=== PATIENT | female | born 1955 | race Caucasian/White ===

== ENCOUNTER → 2016-07-15 | Outpatient (CLI) | payer BC ==
[2016-07-15 09:55] LABS: ALT 42 U/L (9-52); AST 28 U/L (14-36); Alkaline Phosphatase 111 U/L (38-126); Anion Gap 7 mmol/L; Blood Urea Nitrogen 12 mg/dL (7-17); Carbon Dioxide 33 mmol/L (22-30); Chloride 98 mmol/L (98-107); Cholesterol 260 mg/dL (<200); Glucose 88 mg/dL (74-99); HDL Cholesterol 68 mg/dL (40-60); Non-African American GFR(MDRD) >60 (>60 ml/min/1.73 sqM); Potassium 4.8 mmol/L (3.5-5.1); Sodium 138 mmol/L (137-145); Total Bilirubin 0.5 mg/dL (0.2-1.3); Total Protein 7.4 g/dL (6.3-8.2); Triglycerides 199 mg/dL (<150)
[2016-07-15 11:29] LABS: Hemoglobin A1C 6.3 % (4.2-6.1)
== END | disposition home or self-care (01) ==
LOC: LABWHC1 08:44
PROVIDERS: ATTEND Family Medicine
DX: I10 Essential (primary) hypertension (principal); G47.00 Insomnia, unspecified; J44.1 Chronic obstructive pulmonary disease with (acute) exacerbation; E78.00 Pure hypercholesterolemia, unspecified
CPT/HCPCS: 36415; 80053; 80061; 83036; 84443

== ENCOUNTER → 2016-11-11 | Outpatient (CLI) | payer BC ==
[2016-11-11 08:58] LABS: Hemoglobin A1C 5.6 % (4.2-6.1)
[2016-11-11 12:28] LABS: ALT 46 U/L (9-52); AST 26 U/L (14-36); Alkaline Phosphatase 97 U/L (38-126); Anion Gap 11 mmol/L; Blood Urea Nitrogen 12 mg/dL (7-17); Calcium 9.4 mg/dL (8.4-10.2); Carbon Dioxide 27 mmol/L (22-30); Chloride 104 mmol/L (98-107); Cholesterol 213 mg/dL (<200); Glucose 103 mg/dL (74-99); HDL Cholesterol 69 mg/dL (40-60); Non-African American GFR(MDRD) >60 (>60 ml/min/1.73 sqM); Potassium 4.8 mmol/L (3.5-5.1); Sodium 142 mmol/L (137-145); Total Bilirubin 0.4 mg/dL (0.2-1.3); Total Protein 6.9 g/dL (6.3-8.2)
== END | disposition home or self-care (01) ==
LOC: LABWHC1 08:25
PROVIDERS: ATTEND Family Medicine
DX: E78.00 Pure hypercholesterolemia, unspecified (principal); J44.1 Chronic obstructive pulmonary disease with (acute) exacerbation; I10 Essential (primary) hypertension; G47.00 Insomnia, unspecified; R73.01 Impaired fasting glucose; R06.2 Wheezing
CPT/HCPCS: 36415; 80053; 80061; 83036; 84443

== ENCOUNTER → 2017-09-15 | Outpatient (CLI) | payer BC ==
[2017-09-15 09:27] LABS: ALT 50 U/L (9-52); AST 25 U/L (14-36); Albumin 4.1 g/dL (3.5-5.0); Alkaline Phosphatase 80 U/L (38-126); Anion Gap 11 mmol/L; Blood Urea Nitrogen 15 mg/dL (7-17); Carbon Dioxide 28 mmol/L (22-30); Chloride 102 mmol/L (98-107); Cholesterol 232 mg/dL (<200); Glucose 90 mg/dL (74-99); HDL Cholesterol 91 mg/dL (40-60); LDL Cholesterol,Calculated 108 mg/dL (0-99); Potassium 4.9 mmol/L (3.5-5.1); Sodium 141 mmol/L (137-145); Total Bilirubin 0.5 mg/dL (0.2-1.3); Triglycerides 164 mg/dL (<150)
== END | disposition home or self-care (01) ==
LOC: LABWHC1 08:21
PROVIDERS: ATTEND Family Medicine
DX: J44.9 Chronic obstructive pulmonary disease, unspecified (principal); R60.9 Edema, unspecified; I10 Essential (primary) hypertension; E78.00 Pure hypercholesterolemia, unspecified; R73.01 Impaired fasting glucose
CPT/HCPCS: 36415; 80053; 80061; 83036; 84443

== ENCOUNTER 2018-01-31 14:14 | Inpatient (IN) | payer BC ==
--- NOTE | 2018-01-31 14:23 | US ---
EXAMINATION TYPE: US venous doppler duplex LE LT DATE OF EXAM: 01/31/2018 1:54 PM COMPARISON: NONE CLINICAL HISTORY: pain, swelling in left leg R22.42,L53.9. Left leg pain and swelling x 4 days SIDE PERFORMED: Left TECHNIQUE: The lower extremity deep venous system is examined utilizing real time linear array sonog astrid with graded compression, doppler sonography and color-flow sonography. VESSELS IMAGED: External Iliac Vein (EIV) Common Femoral Vein Deep Femoral Vein Greater Saphenous Vein * Femoral Vein Popliteal Vein Small Saphenous Vein * Proximal Calf Veins (* superficial vessels) Grayscale, color doppler, spectral doppler imaging performed of the deep veins of the left lower extr emity. There is normal flow, compressibility, vascular waveforms. Left Leg: Appears positive for DVT from EIV through proximal calf veins IMPRESSION: Positive deep venous thrombosis of the left lower extremity from the external iliac vein through the entirety of the left lower extremity extending into the proximal calf veins. Results [place] led to Emma Concepcion RISK INTERN at end of exam by the electromechanical technician.
--- NOTE | 2018-01-31 14:57 | ED ---
Lower Extremity Injury HPI - General Source: patient, RN notes reviewed Mode of arrival: wheelchair Limitations: no limitations <Dara Schofield - Last Filed: 01/31/18 14:50> <Kobe Serra - Last Filed: 01/31/18 14:59> - General Chief Complaint: Extremity Injury, Lower Stated Complaint: Blood Clot Time Seen by Provider: 01/31/18 14:38 - History of Present Illness Initial Comments: This is a 62-year-old female who presents to the emergency department with chief complaint of left lower extremity blood clot. Patient states that on Sunday she developed a pain in her left thigh. She states that she thought it was a charley horse but then the pain never went away. She states that the pain worsened and her leg became very swollen. She states that she is having difficulty walking on the leg due to the pain. She came in for an outpatient ultrasound of the left lower extremity as ordered by her PCP, Dr. Love. This did reveal evidence for an acute DVT extending from the external iliac vein to the proximal calf veins of the left lower extremity. Patient denies any history of blood clots. She denies anticoagulant use. Patient does state that she has a history of COPD and does have a chronic cough. Denies any worsening shortness of breath. Denies chest pain. Denies recent fevers or chills, abdominal pain, nausea or vomiting. (Dara Schofield) - Related Data Allergies Allergy/AdvReac Type Severity Reaction Status Date / Time No Known Allergies Allergy Verified 01/31/18 14:41 Review of Systems ROS Other: All systems not noted in ROS Statement are negative. <Dara Schofield - Last Filed: 01/31/18 14:50> ROS Other: All systems not noted in ROS Statement are negative. <Kobe Serra - Last Filed: 01/31/18 14:59> ROS Statement: Those systems with pertinent positive or pertinent negative responses have been documented in the HPI. Past Medical History Past Medical History: COPD, Deep Vein Thrombosis (DVT), Hyperlipidemia, Hypertension Additional Past Medical History / Comment(s): L3 fx History of Any Multi-Drug Resistant Organisms: None Reported Past Surgical History: No Surgical Hx Reported Past Psychological History: Anxiety Smoking Status: Current every day smoker Past Alcohol Use History: Occasional Past Drug Use History: None Reported <Dara Schofield - Last Filed: 01/31/18 14:50> General Exam Limitations: no limitations <Dara Schofield - Last Filed: 01/31/18 14:50> <Kobe Serra - Last Filed: 01/31/18 14:59> - General Exam Comments Initial Comments: General: Awake and alert, well-developed; in no apparent distress. HEENT: Head atraumatic, normocephalic. Pupils are equal, round and reactive to light. Extraocular movements intact. Oropharynx moist without erythema or exudate. Neck: Supple. Normal ROM. Cardiovascular: Regular rate and rhythm. No murmurs, rubs or gallops. Chest symmetrical. Respiratory: Lungs clear to auscultation bilaterally. No wheezes, rales or rhonchi. Normal respiratory effort with no use of accessory muscles. Musculoskeletal: Generalized tenderness, swelling and mild erythema of the left lower extremity. Sensation is intact. Pedal pulses are 2+ equal and palpable bilaterally. Skin: [place], warm and dry. Neurological: Alert and oriented x3. CN II-XII grossly intact. Speech is fluent and answers are appropriate. No focal neuro deficits. Psychiatric: Normal mood and affect. No overt signs of depression or anxiety noted. (Dara Schofield) Vital Signs 01/31/18 14:38 Temperature 98.6 F Pulse Rate 96 Respiratory 20 Rate Blood Pressure 136/83 O2 Sat by Pulse 95 Oximetry Medical Decision Making - Radiology Data Radiology results: report reviewed <Dara Schofield - Last Filed: 01/31/18 14:50> <Kobe Serra - Last Filed: 01/31/18 14:59> - Medical Decision Making This is a 62-year-old female who presents to the emergency department with chief complaint of left lower extremity blood clot. Patient reports pain and swelling to the left leg since Sunday. Ultrasound Venous Doppler that was ordered outpatient does reveal evidence for an acute DVT extending from the external iliac vein down to the proximal calf veins. Patient is neurovascularly intact. Denies any blood thinner use. Denies history of blood clots. Patient will be admitted to Dr. Prieto with a consult to Dr. Naranjo. She will be started on high intensity heparin. Patient is in no acute distress and is in agreement for admission. All questions have been answered. (Dara Schofield) Patient reevaluated by myself, Dr. Serra. Patient does have left leg swelling. Patient denies any chest discomfort or dyspnea. Ultrasound report reviewed. Case was discussed in detail with Dr. Prieto, who will admit for Dr. hamilton. Consult will be placed for Dr. Naranjo. (Kobe Serra) - Radiology Data Ultrasound venous Doppler duplex left lower extremity impression: Positive deep venous thrombosis of the left lower extremity from the external iliac vein through the entirety of the left lower extremity extending into the proximal calf veins. Results called to Emma Concepcion NP at end of exam by the welding machine feeder. As read by Dr. Rossi (Dara Schofield) Disposition Is patient prescribed a controlled substance at d/c from ED?: No Time of Disposition: 14:56 <Dara Schofield - Last Filed: 01/31/18 14:50> <Kobe Serra - Last Filed: 01/31/18 14:59> Clinical Impression: Acute deep vein thrombosis (DVT) of left lower extremity Disposition: ADMITTED IP TO THIS HOSP Condition: Stable Referrals: Krista Love MD [Primary Care Provider] - 1-2 days
[2018-01-31] MEDS ORDERED: HEPARIN SODIUM,PORCINE 5,000 UNIT/ML 1 ML VIAL IV PRN (14:59)
[2018-01-31] MEDS ORDERED: NICOTINE 14MG/24HR PATCH TRANSDERM STA (15:00)
[2018-01-31] MEDS ORDERED: HEPARIN SODIUM,PORCINE 10,000 UNIT/ML 1 ML VIAL IV ONE (15:15)
[2018-01-31] MEDS: SODIUM CHLORIDE 0.9% 1,000 ML IV SCH (15:34)
[2018-01-31 15:35] LABS: Basophils % (A) 0 %; Eosinophils # (A) 0.1 k/uL (0-0.7); Eosinophils % (A) 1 %; HCT 48.9 % (34.0-46.0); HGB 16.5 gm/dL (11.4-16.0); Lymphocytes # (A) 1.7 k/uL (1.0-4.8); Lymphocytes % (A) 13 %; MCH 32.6 pg (25.0-35.0); MCHC 33.7 g/dL (31.0-37.0); MCV 96.8 fL (80.0-100.0); Monocytes # (A) 1.3 k/uL (0-1.0); Monocytes % (A) 10 %; Neutrophils # (A) 9.9 k/uL (1.3-7.7); Neutrophils % (A) 75 %; Platelet Count 183 k/uL (150-450); RBC 5.05 m/uL (3.80-5.40); RDW 14.4 % (11.5-15.5); WBC 13.2 k/uL (3.8-10.6)
[2018-01-31] MEDS: ACETAMINOPHEN TAB 325 MG TAB PO PRN (15:35)
[2018-01-31 15:46] LABS: INR 1.1 (<1.2); Partial Thromboplastin Time 23.7 sec (22.0-30.0); Prothrombin Time 10.6 sec (9.0-12.0)
[2018-01-31 16:03] LABS: ALT 37 U/L (9-52); AST 29 U/L (14-36); Albumin 3.9 g/dL (3.5-5.0); Alkaline Phosphatase 116 U/L (38-126); Anion Gap 12 mmol/L; Blood Urea Nitrogen 11 mg/dL (7-17); Calcium 9.2 mg/dL (8.4-10.2); Carbon Dioxide 32 mmol/L (22-30); Chloride 87 mmol/L (98-107); Glucose 135 mg/dL (74-99); Sodium 131 mmol/L (137-145); Total Bilirubin 1.1 mg/dL (0.2-1.3); Total Protein 7.6 g/dL (6.3-8.2)
[2018-01-31] MEDS: HEPARIN SOD,PORK IN 0.45% NACL 25,000 UNIT in 0.45% NACL 1 500ML.BAG IV SCH (17:06)
[2018-01-31] MEDS ORDERED: POTASSIUM CHLORIDE ER 20 MEQ TAB.ER PO STA (18:19)
[2018-01-31] MEDS ORDERED: ALPRAZolam 0.25 MG TAB PO PRN (19:35)
[2018-01-31] MEDS ORDERED: ALBUTEROL NEBULIZED 2.5 MG/3 ML INHALATION PRN ×2 (19:35→20:38)
[2018-01-31] MEDS: SYMBICORT 160-4.5 MCG INHALER INHALATION SCH (20:28)
[2018-01-31] MEDS: CYCLOBENZAPRINE 10 MG TAB PO SCH ×2 (21:44→21:49)
[2018-01-31] MEDS: PRAVASTATIN SODIUM 40 MG TAB PO SCH (21:44)
[2018-01-31] MEDS: traZODone HCL 100 MG TAB PO SCH (21:44)
[2018-02-01] MEDS: SODIUM CHLORIDE 0.9% 1,000 ML IV SCH ×2 (02:55→18:35)
[2018-02-01] MEDS: SYMBICORT 160-4.5 MCG INHALER INHALATION SCH ×2 (07:34→19:19)
[2018-02-01 07:45] LABS: Basophils % (A) 0 %; Eosinophils # (A) 0.1 k/uL (0-0.7); Eosinophils % (A) 1 %; HCT 43.8 % (34.0-46.0); HGB 14.8 gm/dL (11.4-16.0); Lymphocytes # (A) 1.7 k/uL (1.0-4.8); Lymphocytes % (A) 17 %; MCHC 33.9 g/dL (31.0-37.0); MCV 97.5 fL (80.0-100.0); Mean Platelet Volume 7.4; Monocytes # (A) 1.2 k/uL (0-1.0); Monocytes % (A) 12 %; Neutrophils # (A) 6.8 k/uL (1.3-7.7); Neutrophils % (A) 68 %; Platelet Count 180 k/uL (150-450); RBC 4.49 m/uL (3.80-5.40); RDW 14.1 % (11.5-15.5); WBC 9.9 k/uL (3.8-10.6)
[2018-02-01 08:32] LABS: ALT 38 U/L (9-52); AST 25 U/L (14-36); Alkaline Phosphatase 105 U/L (38-126); Anion Gap 6 mmol/L; Blood Urea Nitrogen 9 mg/dL (7-17); Calcium 8.6 mg/dL (8.4-10.2); Carbon Dioxide 37 mmol/L (22-30); Chloride 88 mmol/L (98-107); Glucose 136 mg/dL (74-99); Potassium 2.8 mmol/L (3.5-5.1); Sodium 131 mmol/L (137-145); Total Bilirubin 0.7 mg/dL (0.2-1.3); Total Protein 6.1 g/dL (6.3-8.2)
[2018-02-01] MEDS: MONTELUKAST 10 MG TAB PO SCH (08:41)
[2018-02-01] MEDS: LISINOPRIL 20 MG TAB PO SCH (08:41)
[2018-02-01] MEDS: ESCITALOPRAM 20 MG TAB PO SCH (08:41)
[2018-02-01] MEDS: CYCLOBENZAPRINE 10 MG TAB PO SCH ×2 (08:41→18:34)
[2018-02-01] MEDS: FUROSEMIDE 40 MG TAB PO SCH (08:41)
[2018-02-01] MEDS: HEPARIN SOD,PORK IN 0.45% NACL 25,000 UNIT in 0.45% NACL 1 500ML.BAG IV SCH (09:56)
[2018-02-01] MEDS ORDERED: Potassium Replacement Protocol 1 EACH MISC MISCELLANE PRN ×2 (10:25→18:45)
--- NOTE | 2018-02-01 11:15 | P.HPIM ---
History of Present Illness H&P Date: 02/01/18 Chief Complaint: DVT This is a 62-year-old female patient of Dr. Love. Patient presented to the emergency department planes of left lower extremity blood clot. Patient states the pain started Sunday in her left lower extremity and felt like a charley horse. Patient did not improve. Patient then went to her primary care provider when she experienced increased edema to the left lower extremity. Patient presented for an outpatient ultrasound of left lower extremity as ordered by her PCP. Is Doppler study showing positive DVT of the left lower sternal me from the external iliac vein through the entirety of the left lower extremity extending to the proximal calf veins. Patient denies any history of DVT or pulmonary embolisms in the past. Patient has known past medical history of COPD, hyperlipidemia, hypertension, diverticulitis anxiety, depression and every day smoker. Patient has been started on heparin drip. Dr. Naranjo has been consulted for acute DVT of the left lower extremity. This time patient states left lower sternal the pain is improving. Patient denies chest pain or shortness breath. Patient denies nausea vomiting or diarrhea. Patient denies any urinary burning or frequency Review of Systems please refer to HPI otherwise unremarkable Past Medical History Past Medical History: COPD, Deep Vein Thrombosis (DVT), Hyperlipidemia, Hypertension, Pneumonia, Skin Disorder Additional Past Medical History / Comment(s): L3 fx, diverticulitis, multiple skin lesions on body.pt states she picks her skin. History of Any Multi-Drug Resistant Organisms: None Reported Past Surgical History: No Surgical Hx Reported Additional Past Surgical History / Comment(s): colonoscopy Past Anesthesia/Blood Transfusion Reactions: No Reported Reaction Past Psychological History: Anxiety, Depression Additional Psychological History / Comment(s): pt is independant.lives with spouse and 2 pet dogs. has 02 uses as needed,[facility]. Smoking Status: Current every day smoker Past Alcohol Use History: Occasional Additional Past Alcohol Use History / Comment(s): started smoking 1973, smokes 1 ppd Past Drug Use History: None Reported - Past Family History Mother Family Medical History: No Reported History Additional Family Medical History / Comment(s): from old age Father Family Medical History: Cancer Additional Family Medical History / Comment(s): throat cancer Medications and Allergies Home Medications Medication Instructions Recorded Confirmed Type ALPRAZolam [Xanax] 0.25 mg PO BID PRN 01/31/18 01/31/18 History Albuterol Inhaler [Ventolin Hfa 2 puff INHALATION RT-QID PRN 01/31/18 01/31/18 History Inhaler] Budesonide-Formot 160-4.5 Mcg 1 puff INHALATION RT-BID 01/31/18 01/31/18 History [Symbicort 160-4.5 Mcg Inhaler] Cyclobenzaprine [Flexeril] 10 mg PO Q8H 01/31/18 01/31/18 History Escitalopram [Lexapro] 20 mg PO DAILY 01/31/18 01/31/18 History Furosemide [Lasix] 40 mg PO DAILY 01/31/18 01/31/18 History Lisinopril 40 mg PO DAILY 01/31/18 01/31/18 History Montelukast [Singulair] 10 mg PO DAILY 01/31/18 01/31/18 History Pravastatin Sodium [Pravachol] 40 mg PO DAILY 01/31/18 01/31/18 History traZODone HCL 200 mg PO HS 01/31/18 01/31/18 History Allergies Allergy/AdvReac Type Severity Reaction Status Date / Time No Known Allergies Allergy Verified 01/31/18 17:09 Physical Exam Vitals: Vital Signs Temp Pulse Pulse Resp BP BP Pulse Ox 02/01/18 08:00 16 02/01/18 06:31 98.2 F 84 16 116/58 98 01/31/18 23:00 97.8 F 93 16 124/62 92 L 01/31/18 20:42 97.8 F 88 16 115/58 92 L 01/31/18 18:20 94 18 125/84 93 L 01/31/18 17:04 97.9 F 88 18 132/56 94 L 01/31/18 14:38 98.6 F 96 20 136/83 95 Intake and Output 01/31/18 02/01/18 02/01/18 22:59 06:59 14:59 Intake Total 135.456 240 604.544 Balance 135.456 240 604.544 Intake: Intake, IV Titration 135.456 364.544 Amount Heparin Sod,Pork in 0.45% 135.456 364.544 NaCl 25,000 unit In 0.45 % NaCl 1 500ml.bag @ 18 UNITS/KG/HR 29.88 mls/hr IV .[id number] [facility] Rx#: [id number] Oral 240 240 Other: Voiding Method Toilet # Voids 2 2 Weight 79.5 kg Head normocephalic Neck supple Lungs clear to auscultation bilaterally no wheezing or crackles Heart regular rate and rhythm S1-S2, no rub or gallop Abdomen is soft nontender nondistended positive bowel sounds no hepatosplenomegaly Extremities lower extremity. Pedal pulses are +2 and equal and palpable bilaterally Neuro alert and orientated to 3 Results CBC & Chem 7: 02/01/18 06:59 02/01/18 06:59 Labs: Abnormal Lab Results - Last 24 Hours (Table) 01/31/18 01/31/18 01/31/18 Range/Units 14:52 14:52 21:11 WBC 13.2 H (3.8-10.6) k/uL Hgb 16.5 H (11.4-16.0) gm/dL Hct 48.9 H (34.0-46.0) % Neutrophils # 9.9 H (1.3-7.7) k/uL Monocytes # 1.3 H (0-1.0) k/uL APTT 56.4 H (22.0-30.0) sec Sodium 131 L (137-145) mmol/L Potassium 3.0 L (3.5-5.1) mmol/L Chloride 87 L (98-107) mmol/L Carbon Dioxide 32 H (22-30) mmol/L Glucose 135 H (74-99) mg/dL Total Protein (6.3-8.2) g/dL Albumin (3.5-5.0) g/dL 02/01/18 02/01/18 02/01/18 Range/Units 06:59 06:59 06:59 WBC (3.8-10.6) k/uL Hgb (11.4-16.0) gm/dL Hct (34.0-46.0) % Neutrophils # (1.3-7.7) k/uL Monocytes # 1.2 H (0-1.0) k/uL APTT 50.3 H (22.0-30.0) sec Sodium 131 L (137-145) mmol/L Potassium 2.8 L (3.5-5.1) mmol/L Chloride 88 L (98-107) mmol/L Carbon Dioxide 37 H (22-30) mmol/L Glucose 136 H (74-99) mg/dL Total Protein 6.1 L (6.3-8.2) g/dL Albumin 3.0 L (3.5-5.0) g/dL Thrombosis Risk Factor Assmnt - Choose All That Apply Any of the Below Risk Factors Present?: Yes Each Factor Represents 1 point: Abnormal pulmonary function (COPD), Age 41-60 years, Obesity (BMI >25), Swollen legs (current) Other Risk Factors: Yes Each Risk Factor Represents 3 Points: History of DVT/PE Thrombosis Risk Factor Assessment Total Risk Factor Score: 7 Thrombosis Risk Factor Assessment Level: High Risk Assessment and Plan Assessment: 1. Deep vein thrombosis. Venous Doppler completed showing deep vein thrombosis of the left external iliac being treated entirety of the left lower extremity extending into the proximal calf veins. Patient currently on heparin drip. Dr. Naranjo has been consulted 2. Hypokalemia. Potassium 2.8. Replace per protocol. Recheck has been ordered for 1600 today 3. Nicotine dependence. Patient educated greater than 3 minutes on smoking sensation. Nicotine patch has been ordered 4. Hyponatremia. Sodium 131. Patient maintained on normal saline at 75. Fluid restriction to 1200ml 5. History of COPD. No exacerbation at this time. Continue home medications 6. History of hyperlipidemia. Continue pravastatin 7. History of essential hypertension. Home medications resumed DVT prophylaxis heparin drip. GI prophylaxis Pepcid Case management consulted for anticoagulation coverage upon discharge Time with Patient: Greater than 30 (Greater than 60% of the total time spent in counseling and coordination of care. I performed an examination of the patient and discussed their management with the Nurse Practitioner. I have reviewed the Nurse Practitioner's notes and agree with the documented findings and plan of care)
[2018-02-01] MEDS: ACETAMINOPHEN TAB 325 MG TAB PO PRN (11:28)
[2018-02-01] MEDS: POTASSIUM CHLORIDE ER 20 MEQ TAB.ER PO SCH ×5 (11:30→20:59)
--- NOTE | 2018-02-01 15:46 | CONS ---
DATE OF CONSULTATION: 02/01/2018 This is a 62-year-old female. She has a history of swelling of left lower extremity and she has been admitted with DVT of the left external iliac and femoral vein. The patient has no shortness of breath or chest pain. The patient has no previous history of DVT. No history of traveling. Patient had an ultrasound which shows positive for DVT in the left leg. MEDICAL HISTORY: 1. History of hypertension. 2. Hyperlipidemia. 3. History of pneumonia in the past. PHYSICAL EXAMINATION: Patient was seen in her room. She is lying comfortably in bed. NECK: Supple. Trachea central. CHEST: Clear on auscultation. ABDOMEN: Soft. Brachial, radial and femoral pulses are present. Dorsal pedis is palpable. Patient has no evidence of phlegmasia. Patient has no vascular compromise at this point. Patient is on anticoagulation. Recommendation is compression socks and leg elevation and we will follow with you. We will discuss with Internal Medicine if she needs any kind of thrombolysis. Will follow with you. CHAVOL / IJN: [id number] / MTDMeagan
[2018-02-01] MEDS ORDERED: NICOTINE 14MG/24HR PATCH TRANSDERM STA (18:48)
[2018-02-01] MEDS: PRAVASTATIN SODIUM 40 MG TAB PO SCH (19:57)
[2018-02-01] MEDS: traZODone HCL 100 MG TAB PO SCH (19:57)
[2018-02-02] MEDS: CYCLOBENZAPRINE 10 MG TAB PO SCH ×3 (01:42→15:35)
[2018-02-02] MEDS: HEPARIN SOD,PORK IN 0.45% NACL 25,000 UNIT in 0.45% NACL 1 500ML.BAG IV SCH (03:45)
[2018-02-02 07:37] LABS: Basophils % (A) 0 %; Eosinophils # (A) 0.1 k/uL (0-0.7); Eosinophils % (A) 1 %; HCT 41.3 % (34.0-46.0); HGB 13.7 gm/dL (11.4-16.0); Lymphocytes # (A) 1.8 k/uL (1.0-4.8); Lymphocytes % (A) 16 %; MCH 32.7 pg (25.0-35.0); MCHC 33.1 g/dL (31.0-37.0); MCV 98.7 fL (80.0-100.0); Mean Platelet Volume 7.8; Monocytes # (A) 1.2 k/uL (0-1.0); Monocytes % (A) 11 %; Neutrophils # (A) 7.9 k/uL (1.3-7.7); Neutrophils % (A) 70 %; Platelet Count 189 k/uL (150-450); RBC 4.19 m/uL (3.80-5.40); RDW 14.1 % (11.5-15.5); WBC 11.2 k/uL (3.8-10.6)
[2018-02-02 07:51] LABS: ALT 36 U/L (9-52); AST 23 U/L (14-36); Albumin 2.7 g/dL (3.5-5.0); Alkaline Phosphatase 81 U/L (38-126); Anion Gap 5 mmol/L; Blood Urea Nitrogen 9 mg/dL (7-17); Calcium 8.5 mg/dL (8.4-10.2); Carbon Dioxide 31 mmol/L (22-30); Chloride 98 mmol/L (98-107); Glucose 123 mg/dL (74-99); Sodium 134 mmol/L (137-145); Total Bilirubin 0.5 mg/dL (0.2-1.3); Total Protein 5.8 g/dL (6.3-8.2)
[2018-02-02] MEDS: SYMBICORT 160-4.5 MCG INHALER INHALATION SCH (07:58)
[2018-02-02] MEDS: LISINOPRIL 20 MG TAB PO SCH ×2 (08:35→08:38)
[2018-02-02] MEDS: MONTELUKAST 10 MG TAB PO SCH (08:35)
[2018-02-02] MEDS: ESCITALOPRAM 20 MG TAB PO SCH (08:35)
[2018-02-02] MEDS: FUROSEMIDE 40 MG TAB PO SCH (08:35)
[2018-02-02] MEDS: SODIUM CHLORIDE 0.9% 1,000 ML IV SCH (08:54)
[2018-02-02] MEDS: ACETAMINOPHEN TAB 325 MG TAB PO PRN ×2 (08:57→15:51)
[2018-02-02] MEDS ORDERED: FAMOTIDINE 20 MG TAB PO SCH (09:00)
--- NOTE | 2018-02-02 10:05 | PN ---
PROGRESS NOTE This patient is a 62-year-old female with a history of extensive DVT involving the iliac, femoral and popliteal. She came into the hospital and has been admitted with IV heparin. The patient's femoral pulses are present. No evidence of phlegmasia. The patient has extensive DVT involving the iliac vein. Indication is to do thrombolysis. I have discussed this with the vascular surgeon in [facility], and the patient will be transferred for thrombolysis of the iliac vein and femoral vein. The patient has agreed. We will continue with heparin. MMODL / IJN: [id number] /
--- NOTE | 2018-02-02 15:18 | P.DS ---
Providers Date of admission: 01/31/18 14:59 Expected date of discharge: 02/02/18 Attending physician: Anjum Prieto Consults: 01/31/18 14:58 Consult Physician Urgent Consulting Provider: George Naranjo Consult Reason/Comments: Acute DVT left lower extremity Do you want consulting provider notified?: Yes Primary care physician: Krista Love [facility] Course: Diagnoses on discharge: 1. Deep vein thrombosis. Venous Doppler completed showing deep vein thrombosis of the left external iliac vein entirety of the left lower extremity extending into the proximal calf veins. Patient currently on heparin drip. Dr. Naranjo has been consulted, patient on 02/01/2018, and agreed with treatment with IV heparin however upon further review of her lower extremity Doppler on 02/02/2018 Dr. Naranjo advised to transfer patient to a tertiary care center for thrombolysis of the left iliac vein. Patient will be transferred to [facility] 2. Hypokalemia. Potassium 2.8. Replace per protocol. Recheck has been ordered for 1600 today 3. Nicotine dependence. Patient educated greater than 3 minutes on smoking sensation. Nicotine patch has been ordered 4. Hyponatremia. Sodium 131. Patient maintained on normal saline at 75. Fluid restriction to 1200ml 5. History of COPD. No exacerbation at this time. Continue home medications 6. History of hyperlipidemia. Continue pravastatin 7. History of essential hypertension. Home medications resumed Hospital course: This is a 62-year-old female patient of Dr. Love. Patient presented to the emergency department planes of left lower extremity blood clot. Patient states the pain started Sunday in her left lower extremity and felt like a charley horse. Patient did not improve. Patient then went to her primary care provider when she experienced increased edema to the left lower extremity. Patient presented for an outpatient ultrasound of left lower extremity as ordered by her PCP. Is Doppler study showing positive DVT of the left lower sternal me from the external iliac vein through the entirety of the left lower extremity extending to the proximal calf veins. Patient denies any history of DVT or pulmonary embolisms in the past. Patient has known past medical history of COPD, hyperlipidemia, hypertension, diverticulitis anxiety, depression and every day smoker. Patient has been started on heparin drip. Dr. Naranjo has been consulted for acute DVT of the left lower extremity. This time patient states left lower sternal the pain is improving. Patient denies chest pain or shortness breath. Patient denies nausea vomiting or diarrhea. Patient denies any urinary burning or frequency. On 02/02/2018 patient was reevaluated by Dr. Naranjo he reassessed her lower extremity Doppler and advised to transfer patient to a tertiary care center for thrombolysis of the left iliac Patient Condition at Discharge: Stable Plan - Discharge Summary Discharge Rx Participant: Yes New Discharge Prescriptions: No Action Lisinopril 40 mg PO DAILY Furosemide [Lasix] 40 mg PO DAILY Cyclobenzaprine [Flexeril] 10 mg PO Q8H Budesonide-Formot 160-4.5 Mcg [Symbicort 160-4.5 Mcg Inhaler] 1 puff INHALATION RT-BID Albuterol Inhaler [Ventolin Hfa Inhaler] 2 puff INHALATION RT-QID PRN PRN Reason: Shortness Of Breath traZODone HCL 200 mg PO HS Pravastatin Sodium [Pravachol] 40 mg PO DAILY Escitalopram [Lexapro] 20 mg PO DAILY ALPRAZolam [Xanax] 0.25 mg PO BID PRN PRN Reason: Anxiety Montelukast [Singulair] 10 mg PO DAILY Discharge Medication List ALPRAZolam [Xanax] 0.25 mg PO BID PRN 01/31/18 [History] Albuterol Inhaler [Ventolin Hfa Inhaler] 2 puff INHALATION RT-QID PRN 01/31/18 [ History] Budesonide-Formot 160-4.5 Mcg [Symbicort 160-4.5 Mcg Inhaler] 1 puff INHALATION RT-BID 01/31/18 [History] Cyclobenzaprine [Flexeril] 10 mg PO Q8H 01/31/18 [History] Escitalopram [Lexapro] 20 mg PO DAILY 01/31/18 [History] Furosemide [Lasix] 40 mg PO DAILY 01/31/18 [History] Lisinopril 40 mg PO DAILY 01/31/18 [History] Montelukast [Singulair] 10 mg PO DAILY 01/31/18 [History] Pravastatin Sodium [Pravachol] 40 mg PO DAILY 01/31/18 [History] traZODone HCL 200 mg PO HS 01/31/18 [History] Follow up Appointment(s)/Referral(s): Krista Love MD [Primary Care Provider] - 1 Week Patient Instructions/Handouts: Deep Vein Thrombosis (DC) Activity/Diet/Wound Care/Special Instructions: DC RX No smoking, cessation information provided. Regular diet Activity as tolerated.
[2018-02-02 15:41] VITALS: BP 124/72; PULSE 90; RESP 18; TEMP 97.5
== END 2018-02-02 17:34 | disposition short-term general hospital (02) | DRG 300 ==
LOC: EC 14:14 → 4MS4W 14:59
PROVIDERS: ADMIT Internal Medicine; ATTEND Internal Medicine
DX: I82.422 Acute embolism and thrombosis of left iliac vein (principal); E87.1 Hypo-osmolality and hyponatremia; I82.412 Acute embolism and thrombosis of left femoral vein; I82.432 Acute embolism and thrombosis of left popliteal vein; E78.5 Hyperlipidemia, unspecified; E87.6 Hypokalemia; F17.200 Nicotine dependence, unspecified, uncomplicated; F32.9 Major depressive disorder, single episode, unspecified; F41.9 Anxiety disorder, unspecified; I10 Essential (primary) hypertension; J44.9 Chronic obstructive pulmonary disease, unspecified; Z79.51 Long term (current) use of inhaled steroids; Z79.899 Other long term (current) drug therapy; Z80.8 Family history of malignant neoplasm of other organs or systems; Z87.01 Personal history of pneumonia (recurrent); L98.9 Disorder of the skin and subcutaneous tissue, unspecified; X83.8XXA Intentional self-harm by other specified means, initial encounter; Z99.81 Dependence on supplemental oxygen
CPT/HCPCS: 80053; 84132; 85025; 85610; 85730; 94640; 96365; 96376; 99285

== ENCOUNTER → 2018-03-16 | Outpatient (CLI) | payer BC ==
[2018-03-16 17:49] LABS: Albumin 4.2 g/dL (3.80-4.90); Albumin/Globulin Ratio 1.45 (1.20-2.10); Anion Gap 6.3 mmol/L (4.00-12.00); Calcium 9.6 mg/dL (8.7-10.3); Carbon Dioxide 28.7 mmol/L (21.6-31.8); Globulin 2.9 g/dL (2.1-3.7); LDL Cholesterol,Calculated 100.8 mg/dL (0.0-131.0); Total Bilirubin 0.3 mg/dL (0.2-1.2); Total Protein 7.1 g/dL (6.2-8.2); VLDL Calculation 53.2 mg/dL (5.00-40.00)
[2018-03-16 19:42] LABS: Hemoglobin A1C 5.9 % (4.0-6.0)
== END | disposition home or self-care (01) ==
LOC: LABWHC1 08:06
PROVIDERS: ATTEND Family Medicine
DX: E78.00 Pure hypercholesterolemia, unspecified (principal); R73.01 Impaired fasting glucose; I10 Essential (primary) hypertension; J44.9 Chronic obstructive pulmonary disease, unspecified
CPT/HCPCS: 36415; 80053; 80061; 83036; 84443

== ENCOUNTER → 2018-09-14 | Outpatient (CLI) | payer BC ==
[2018-09-14 16:52] LABS: Albumin 3.8 g/dL (3.80-4.90); Albumin/Globulin Ratio 1.58 (1.60-3.17); Anion Gap 5.7 mmol/L (4.00-12.00); Calcium 9.5 mg/dL (8.7-10.3); Carbon Dioxide 31.3 mmol/L (21.6-31.8); Globulin 2.4 g/dL (1.6-3.3); LDL Cholesterol,Calculated 149.8 mg/dL (0.0-131.0); Potassium 4.6 mmol/L (3.5-5.5); Total Bilirubin 0.3 mg/dL (0.2-1.2); Total Protein 6.2 g/dL (6.2-8.2); VLDL Calculation 56.2 mg/dL (5.00-40.00)
[2018-09-14 20:29] LABS: Hemoglobin A1C 6.2 % (4.0-6.0)
== END ==
LOC: LABWHC1 08:20
PROVIDERS: ATTEND Family Medicine
DX: E78.00 Pure hypercholesterolemia, unspecified (principal); I10 Essential (primary) hypertension; R73.01 Impaired fasting glucose; R60.9 Edema, unspecified
CPT/HCPCS: 36415; 80053; 80061; 83036; 84443

== ENCOUNTER → 2019-03-22 | Outpatient (CLI) | payer MEDICARE, BC ==
[2019-03-22 17:27] LABS: African American GFR (CKD) 92.2 (60.0-200.0); Albumin 4.3 g/dL (3.80-4.90); Albumin/Globulin Ratio 2.05 (1.60-3.17); BUN/Creat Ratio 16.25 Ratio (12.00-20.00); Calcium 9.5 mg/dL (8.7-10.3); Chol/HDL Ratio 2.87; Globulin 2.1 g/dL (1.6-3.3); LDL Cholesterol,Calculated 114.4 mg/dL (0.0-131.0); Non-African American GFR(CKD) 79.6 (60.0-200.0); Potassium 4.2 mmol/L (3.5-5.5); Total Bilirubin 0.5 mg/dL (0.2-1.2); Total Protein 6.4 g/dL (6.2-8.2); VLDL Calculation 40.6 mg/dL (5.00-40.00)
[2019-03-22 18:31] LABS: Hemoglobin A1C 5.9 % (4.0-6.0)
== END | disposition home or self-care (01) ==
LOC: LABWHC1 08:23
PROVIDERS: ATTEND Family Medicine
DX: I10 Essential (primary) hypertension (principal); J44.9 Chronic obstructive pulmonary disease, unspecified; I87.2 Venous insufficiency (chronic) (peripheral); R73.01 Impaired fasting glucose; E78.00 Pure hypercholesterolemia, unspecified
CPT/HCPCS: 36415; 80053; 80061; 83036; 84443

== ENCOUNTER 2020-01-05 17:09 | Inpatient (IN) | payer BC, MEDICARE ==
[2020-01-05] MEDS ORDERED: MORPHINE SULFATE 4 MG/ML SYRINGE IVP STA (19:47)
[2020-01-05] MEDS ORDERED: ONDANSETRON 4 MG/2 ML VIAL IVP STA (19:48)
[2020-01-05] MEDS ORDERED: SODIUM CHLORIDE 0.9% 500 ML 500 ML IV ONE (19:48)
--- NOTE | 2020-01-05 20:02 | ED ---
General Adult HPI - General Chief complaint: Abdominal Pain Stated complaint: sent by pcp Time Seen by Provider: 01/05/20 19:30 Source: patient Mode of arrival: wheelchair Limitations: no limitations - History of Present Illness Initial comments: 64-year-old female presents to the emergency department this evening, accompanied by her , for evaluation of right-sided abdominal pain that radiates to the right flank and is associated with diffuse gas pain, nausea, and poor appetite. Patient states her symptoms began 2 months ago. She did have in creased pain today. Reports a few episodes of vomiting. Denies any hematemesis, hematochezia, or melena. Denies fever, chills, and malaise. Reports fatty stools, but denies diarrhea. States she did speak to her primary care physician today and was urged to come in to ED for workup. Patient denies any recent rash, cough, shortness of breath, chest pain, constipation, numbness, tingling, dizziness, weakness, hematuria, dysuria, urinary urgency, urinary frequency, headache, visual changes, or any other complaints. - Related Data Home Medications Medication Instructions Recorded Confirmed Budesonide-Formot 160-4.5 Mcg 2 puff INHALATION RT-BID 01/31/18 01/05/20 [Symbicort 160-4.5 Mcg Inhaler] Escitalopram [Lexapro] 20 mg PO DAILY 01/31/18 01/05/20 Montelukast [Singulair] 10 mg PO DAILY 01/31/18 01/05/20 Pravastatin Sodium [Pravachol] 40 mg PO DAILY 01/31/18 01/05/20 lisinopriL 40 mg PO DAILY 01/31/18 01/05/20 traZODone HCL 200 mg PO HS 01/31/18 01/05/20 ALPRAZolam [Xanax] 0.5 mg PO BID PRN 01/05/20 01/05/20 Folic Acid 1 mg PO DAILY 01/05/20 01/05/20 Ipratropium/Albuter 20-100Mcg 1 puff INHALATION RT-QID 01/05/20 01/05/20 [Combivent Respimat 20-100Mcg Inhaler] Leflunomide [Arava] 20 mg PO DAILY 01/05/20 01/05/20 metHOTREXate sodium [Methotrexate] 25 mg PO WATKINS 01/05/20 01/05/20 Allergies Allergy/AdvReac Type Severity Reaction Status Date / Time No Known Allergies Allergy Verified 01/05/20 20:51 Review of Systems ROS Statement: Those systems with pertinent positive or pertinent negative responses have been documented in the HPI. ROS Other: All systems not noted in ROS Statement are negative. Past Medical History Past Medical History: COPD, Deep Vein Thrombosis (DVT), Hyperlipidemia, Hypertension, Pneumonia, Skin Disorder Additional Past Medical History / Comment(s): L3 fx, diverticulitis, multiple skin lesions on body.pt states she picks her skin. History of Any Multi-Drug Resistant Organisms: None Reported Past Surgical History: No Surgical Hx Reported Additional Past Surgical History / Comment(s): colonoscopy Past Anesthesia/Blood Transfusion Reactions: No Reported Reaction Past Psychological History: Anxiety, Depression Smoking Status: Current every day smoker Past Alcohol Use History: Occasional Past Drug Use History: None Reported - Past Family History Mother Family Medical History: No Reported History Additional Family Medical History / Comment(s): from old age Father Family Medical History: Cancer Additional Family Medical History / Comment(s): throat cancer General Exam Limitations: no limitations General appearance: alert, in no apparent distress, other (This is a well- developed, well-nourished female who presents to the emergency department in moderate discomfort but no acute distress. Initial vital signs include temperature 98.4F, pulse 114, respirations 18, blood pressure 173/74, pulse ox 97% on room air.) Respiratory exam: Present: normal lung sounds bilaterally. Absent: respiratory distress, wheezes, rales, rhonchi, stridor Cardiovascular Exam: Present: regular rate, normal rhythm, normal heart sounds. Absent: systolic murmur, diastolic murmur, rubs, gallop, clicks GI/Abdominal exam: Present: soft, distended, tenderness (Right upper quadrant, right lower quadrant.), normal bowel sounds. Absent: guarding, rebound, rigid Neurological exam: Present: alert, oriented X3, CN II-XII intact Psychiatric exam: Present: anxious (Patient appears slightly anxious resting in the cot. Pulses present at bedside.) Skin exam: Present: warm, dry, intact, normal color. Absent: rash Course Vital Signs 01/05/20 17:30 Temperature 98.4 F Pulse Rate 114 H Respiratory 18 Rate Blood Pressure 173/74 O2 Sat by Pulse 97 Oximetry EKG Findings - EKG Comments: EKG Findings:: EKG obtained at 2122 shows sinus tachycardia with premature atrial complexes. Ventricular rate is 110, SD interval 170, QRS duration 86, QT 366, QTc 495. No evidence of ST elevation or depression. Medical Decision Making - Medical Decision Making 64-year-old female patient presented to the emergency department today for evaluation of right-sided abdominal pain. Pain is been present for the last couple of months but did worsen today. She has had a few episodes of vomiting. Labs reviewed and did reveal elevated white blood cell count at 16.7. Potassium is 3.0. Bilirubin is 2.8. Urinalysis showed no evidence for infection but did reveal presence of ketones. Patient does seem to be dehydrated. CT abdomen and pelvis was obtained and showed no acute abnormalities. We'll admit to the hospital for intractable pain and hypokalemia. We will also treat the dehydration with IV fluids. We will do ultrasound in the morning. I did discuss findings, results, plan with the patient, she is agreeable. - Lab Data Result diagrams: 01/05/20 20:05 01/05/20 20:05 Lab Results 01/05/20 01/05/20 01/05/20 Range/Units 20:05 20:05 20:05 WBC 16.7 H (3.8-10.6) k/uL RBC 5.49 H (3.80-5.40) m/uL Hgb 16.5 H (11.4-16.0) gm/dL Hct 51.0 H (34.0-46.0) % MCV 93.0 (80.0-100.0) fL MCH 30.1 (25.0-35.0) pg MCHC 32.3 (31.0-37.0) g/dL RDW 17.2 H (11.5-15.5) % Plt Count 154 (150-450) k/uL Neutrophils % 85 % Lymphocytes % 6 % Monocytes % 6 % Eosinophils % 2 % Basophils % 0 % Neutrophils # 14.1 H (1.3-7.7) k/uL Lymphocytes # 1.1 (1.0-4.8) k/uL Monocytes # 1.0 (0-1.0) k/uL Eosinophils # 0.3 (0-0.7) k/uL Basophils # 0.1 (0-0.2) k/uL Anisocytosis Slight Sodium 136 L (137-145) mmol/L Potassium 3.0 L (3.5-5.1) mmol/L Chloride 98 (98-107) mmol/L Carbon Dioxide 31 H (22-30) mmol/L Anion Gap 7 mmol/L BUN 13 (7-17) mg/dL Creatinine 0.52 (0.52-1.04) mg/dL Est GFR (CKD-EPI)AfAm >90 (>60 ml/min/1.73 sqM) Est GFR (CKD-EPI)NonAf >90 (>60 ml/min/1.73 sqM) Glucose 159 H (74-99) mg/dL Calcium 9.0 (8.4-10.2) mg/dL Total Bilirubin 2.8 H (0.2-1.3) mg/dL AST 30 (14-36) U/L ALT 68 H (4-34) U/L Alkaline Phosphatase 120 (38-126) U/L Troponin I (0.000-0.034) ng/mL Total Protein 6.6 (6.3-8.2) g/dL Albumin 3.6 (3.5-5.0) g/dL Lipase 16 L (23-300) U/L Urine Color Yellow Urine Appearance Clear (Clear) Urine pH 7.5 (5.0-8.0) Ur Specific [place] >1.050 H (1.001-1.035) Urine Protein 1+ H (Negative) Urine Glucose (UA) Negative (Negative) Urine Ketones 2+ H (Negative) Urine Blood Negative (Negative) Urine Nitrite Negative (Negative) Urine Bilirubin Negative (Negative) Urine Urobilinogen <2.0 (<2.0) mg/dL Ur Leukocyte Esterase Negative (Negative) Urine RBC 4 (0-5) /hpf Urine WBC 2 (0-5) /hpf Ur Squamous Epith Cells 18 H (0-4) /hpf Urine Bacteria Rare H (None) /hpf Urine Mucus Few H (None) /hpf 01/05/20 Range/Units 20:05 WBC (3.8-10.6) k/uL RBC (3.80-5.40) m/uL Hgb (11.4-16.0) gm/dL Hct (34.0-46.0) % MCV (80.0-100.0) fL MCH (25.0-35.0) pg MCHC (31.0-37.0) g/dL RDW (11.5-15.5) % Plt Count (150-450) k/uL Neutrophils % % Lymphocytes % % Monocytes % % Eosinophils % % Basophils % % Neutrophils # (1.3-7.7) k/uL Lymphocytes # (1.0-4.8) k/uL Monocytes # (0-1.0) k/uL Eosinophils # (0-0.7) k/uL Basophils # (0-0.2) k/uL Anisocytosis Sodium (137-145) mmol/L Potassium (3.5-5.1) mmol/L Chloride (98-107) mmol/L Carbon Dioxide (22-30) mmol/L Anion Gap mmol/L BUN (7-17) mg/dL Creatinine (0.52-1.04) mg/dL Est GFR (CKD-EPI)AfAm (>60 ml/min/1.73 sqM) Est GFR (CKD-EPI)NonAf (>60 ml/min/1.73 sqM) Glucose (74-99) mg/dL Calcium (8.4-10.2) mg/dL Total Bilirubin (0.2-1.3) mg/dL AST (14-36) U/L ALT (4-34) U/L Alkaline Phosphatase (38-126) U/L Troponin I 0.019 (0.000-0.034) ng/mL Total Protein (6.3-8.2) g/dL Albumin (3.5-5.0) g/dL Lipase (23-300) U/L Urine Color Urine Appearance (Clear) Urine pH (5.0-8.0) Ur Specific [place] (1.001-1.035) Urine Protein (Negative) Urine Glucose (UA) (Negative) Urine Ketones (Negative) Urine Blood (Negative) Urine Nitrite (Negative) Urine Bilirubin (Negative) Urine Urobilinogen (<2.0) mg/dL Ur Leukocyte Esterase (Negative) Urine RBC (0-5) /hpf Urine WBC (0-5) /hpf Ur Squamous Epith Cells (0-4) /hpf Urine Bacteria (None) /hpf Urine Mucus (None) /hpf - Radiology Data Radiology results: report reviewed, image reviewed CT abdomen and pelvis with contrast was obtained. Report is reviewed in its entirety. Impression by Dr. Bailey shows sigmoid diverticulosis without di verticulitis. No sign of acute abdomen and pelvis. Old compression fracture of L3 with spinal stenosis. Appendix not seen. I do not see a cause for right lower quadrant pain. Disposition Clinical Impression: Intractable abdominal pain, Hypokalemia, Leukocytosis, Dehydration Disposition: ADMITTED IP TO THIS [facility] Condition: Serious Referrals: Krista Love MD [Primary Care Provider] - 1-2 days Decision to Admit Reason: Admit from EC Decision Date: 01/05/20 Decision Time: 22:59
[2020-01-05 20:11] LABS: Anisocytosis Slight; Basophils # (A) 0.1 k/uL (0-0.2); Basophils % (A) 0 %; Eosinophils # (A) 0.3 k/uL (0-0.7); Eosinophils % (A) 2 %; HGB 16.5 gm/dL (11.4-16.0); Lymphocytes # (A) 1.1 k/uL (1.0-4.8); Lymphocytes % (A) 6 %; MCH 30.1 pg (25.0-35.0); MCHC 32.3 g/dL (31.0-37.0); Mean Platelet Volume 9.5; Monocytes % (A) 6 %; Neutrophils # (A) 14.1 k/uL (1.3-7.7); Neutrophils % (A) 85 %; Platelet Count 154 k/uL (150-450); RBC 5.49 m/uL (3.80-5.40); RDW 17.2 % (11.5-15.5); WBC 16.7 k/uL (3.8-10.6)
[2020-01-05 20:21] LABS: ALT 68 U/L (4-34); AST 30 U/L (14-36); African American GFR (CKD) >90 (>60 ml/min/1.73 sqM); Albumin 3.6 g/dL (3.5-5.0); Alkaline Phosphatase 120 U/L (38-126); Anion Gap 7 mmol/L; Blood Urea Nitrogen 13 mg/dL (7-17); Carbon Dioxide 31 mmol/L (22-30); Chloride 98 mmol/L (98-107); Glucose 159 mg/dL (74-99); Non-African American GFR(CKD) >90 (>60 ml/min/1.73 sqM); Sodium 136 mmol/L (137-145); Total Bilirubin 2.8 mg/dL (0.2-1.3); Total Protein 6.6 g/dL (6.3-8.2)
[2020-01-05 21:35] LABS: Appearance,Urine Clear (Clear); Bacteria,Urine Rare /hpf; Bilirubin,Urine Negative (Negative); Blood,Urine Negative (Negative); Color,Urine Yellow; Glucose,Urine (UA) Negative (Negative); Ketones,Urine 2+ (Negative); Leukocyte Esterase,Urine Negative (Negative); Mucus,Urine Few /hpf; Nitrite,Urine Negative (Negative); PH, Urine 7.5 (5.0-8.0); Protein,Urine 1+ (Negative); RBC,Urine 4 /hpf (0-5); Squamous Epithelial Cell,Urine 18 /hpf (0-4); Urobilinogen,Urine <2.0 mg/dL (<2.0); WBC,Urine 2 /hpf (0-5)
[2020-01-05 21:40] LABS: Specific Gravity,Urine >1.050 (1.001-1.035)
--- NOTE | 2020-01-05 21:40 | CT ---
EXAMINATION TYPE: CT abdomen pelvis w con DATE OF EXAM: 01/05/2020 COMPARISON: None HISTORY: Right lower quadrant abdominal pain. CT DLP: 867.5 mGycm Automated exposure control for dose reduction was used. CONTRAST: Performed with IV Contrast, patient injected with 100ml mL of Isovue 300. Lung bases are clear of infiltrate. There is no pleural effusion. Heart size is normal. Liver shows no focal defect. Spleen stomach pancreas appear normal. Bile ducts are not dilated. Gallb ladder appears normal. There is no adrenal mass. Kidneys show satisfactory contrast opacification. There is no hydronephrosi s. There is no retroperitoneal adenopathy. Bladder distends smoothly. There is IUD with IUD device in the uterine fundus. There are multiple sigmoid diverticula. There is no evidence of diverticulitis. There is no mesenteric edema. There is no ascites or free air. There is no bowel obstruction. Abdominal aorta is atheromatous. There is stent in the left iliac vein. There is mild compression fra cture L3 vertebra of 30%. There is posterior fragment extension into the spinal canal with moderate s gerald stenosis. IMPRESSION: Sigmoid diverticulosis without diverticulitis. No sign of acute abdomen and pelvis. Old compression f racture of L3 with spinal stenosis. Appendix not seen. I do not see a cause for right lower quadrant pain.
[2020-01-05] MEDS ORDERED: Potassium Replacement Protocol 1 EACH MISC MISCELLANE PRN (22:42)
[2020-01-05] MEDS ORDERED: ONDANSETRON 4 MG/2 ML VIAL IVP PRN (22:53)
[2020-01-05] MEDS ORDERED: NALOXONE 0.4 MG/ML 1 ML VIAL IV PRN (22:53)
[2020-01-05] MEDS: SODIUM CHLORIDE 0.9% 1,000 ML IV SCH (23:27)
[2020-01-05] MEDS: POTASSIUM CHLORIDE ER 20 MEQ TAB.ER PO SCH (23:27)
[2020-01-05] MEDS ORDERED: traZODone HCL 100 MG TAB PO STA (23:50)
[2020-01-06] MEDS: POTASSIUM CHLORIDE ER 20 MEQ TAB.ER PO SCH (00:30)
[2020-01-06] MEDS: MORPHINE SULFATE 4 MG/ML SYRINGE IV PRN ×4 (02:11→20:19)
[2020-01-06] MEDS ORDERED: traZODone HCL 100 MG TAB PO ONE ×2 (03:00)
[2020-01-06 05:01] LABS: Anisocytosis Slight; Basophils # (A) 0.1 k/uL (0-0.2); Basophils % (A) 0 %; Eosinophils # (A) 0.2 k/uL (0-0.7); Eosinophils % (A) 1 %; HCT 44.5 % (34.0-46.0); HGB 14.5 gm/dL (11.4-16.0); Lymphocytes # (A) 1.4 k/uL (1.0-4.8); Lymphocytes % (A) 7 %; MCH 30.8 pg (25.0-35.0); MCHC 32.5 g/dL (31.0-37.0); MCV 94.6 fL (80.0-100.0); Mean Platelet Volume 10.7; Monocytes # (A) 1.5 k/uL (0-1.0); Monocytes % (A) 8 %; Neutrophils # (A) 15.5 k/uL (1.3-7.7); Neutrophils % (A) 82 %; Platelet Count 138 k/uL (150-450); RDW 17.6 % (11.5-15.5); WBC 18.9 k/uL (3.8-10.6)
[2020-01-06 05:10] LABS: African American GFR (CKD) >90 (>60 ml/min/1.73 sqM); Albumin 2.9 g/dL (3.5-5.0); Anion Gap 4 mmol/L; Calcium 8.1 mg/dL (8.4-10.2); Carbon Dioxide 30 mmol/L (22-30); Chloride 102 mmol/L (98-107); Glucose 128 mg/dL (74-99); Non-African American GFR(CKD) >90 (>60 ml/min/1.73 sqM); Sodium 136 mmol/L (137-145); Total Bilirubin 2.5 mg/dL (0.2-1.3); Total Protein 5.7 g/dL (6.3-8.2)
[2020-01-06 05:12] LABS: ALT 58 U/L (4-34); AST 33 U/L (14-36); Alkaline Phosphatase 89 U/L (38-126); Blood Urea Nitrogen 11 mg/dL (7-17); Potassium 3.4 mmol/L (3.5-5.1)
--- NOTE | 2020-01-06 08:01 | US ---
EXAMINATION TYPE: US abdomen limited DATE OF EXAM: 01/06/2020 COMPARISON: CT CLINICAL HISTORY: RUQ abdomen; Pain. Right lateral abdominal pain x 2 months wand history of divertic ulitis. EXAM MEASUREMENTS: Liver Length: 10.8 cm Gallbladder Wall: 0.3 cm CBD: 0.2 cm Right Kidney: 10.8 x 5.2 x 4.3 cm Pancreas: hyperechoic and tail obscured by overlying bowel gas Liver: wnl Gallbladder: large shadowing stone seen in fundus in LLD position; multiple hyperechoic foci seen wi thin gallbladder Evidence for sonographic Charlton's sign: tender at right abdomen CBD: wnl Right Kidney: No hydronephrosis or masses seen IMPRESSION: 1. Limited assessment of the pancreas due to bowel gas. 2. Multiple gallstones. There is a positive sonographic Charlton's sign. Consider correlation with HIDA scan to assess for cholecystitis. Wall thickness at the upper limits of normal.
[2020-01-06] MEDS ORDERED: ALPRAZolam 0.5 MG TAB PO PRN (15:07)
--- NOTE | 2020-01-06 15:10 | P.HPIM ---
History of Present Illness H&P Date: 01/06/20 Chief Complaint: Abdominal pain Ceci Whitten is a 64-year-old female patient of Dr. Love who presented to [facility] emergency room with a chief complaint of right upper quadrant abdominal pain and nausea patient was evaluated in emergency room, her temperature on presentation was 98.4 pulse 114 respiration 18 blood pressure 173/74 pulse ox 97% on room air white blood count was elevated at 16.7 hemoglobin 16.5 platelet count 154 sodium 136 potassium 3.0 kidney function was normal total bilirubin was elevated at 2.8 ALT was elevated at 68 normal alk agnes phosphatase, there was minimal elevation in troponin level, lipase was normal. Patient was started on IV antibiotic Zosyn, surgical consultation and infectious disease consultation were requested, also patient was having some tightness in her chest and her troponin was slightly elevated at 0.019, 0.020 cardiology consultation was requested computed tomography scan of the abdomen and pelvis was done and ultrasound of the right upper quadrant was done patient had evidence of diverticulosis but no acute diverticulitis, there was also evidence of cholelithiasis. EKG was done and revealed sinus tachycardia with pulmonary disease pattern and ST and T-wave abnormality in the inferior leads. Patient denies any history of coronary artery disease, angina, or congestive heart failure, she has a history of smoking, 1 pack per day she has been smoking more than 30 years and history of COPD, she has history of diverticulosis. Past Medical History Past Medical History: COPD, Deep Vein Thrombosis (DVT), Hyperlipidemia, Hypertension, Pneumonia, Skin Disorder Additional Past Medical History / Comment(s): L3 fx, diverticulitis, multiple skin lesions on body.pt states she picks her skin. History of Any Multi-Drug Resistant Organisms: None Reported Past Surgical History: No Surgical Hx Reported Additional Past Surgical History / Comment(s): colonoscopy Past Anesthesia/Blood Transfusion Reactions: No Reported Reaction Past Psychological History: Anxiety, Depression Smoking Status: Current every day smoker Past Alcohol Use History: Occasional Past Drug Use History: None Reported - Past Family History Mother Family Medical History: No Reported History Additional Family Medical History / Comment(s): from old age Father Family Medical History: Cancer Additional Family Medical History / Comment(s): throat cancer Medications and Allergies Home Medications Medication Instructions Recorded Confirmed Type Budesonide-Formot 160-4.5 Mcg 2 puff INHALATION RT-BID 10/25/18 09/28/20 History [Symbicort 160-4.5 Mcg Inhaler] Escitalopram [Lexapro] 20 mg PO DAILY 01/31/18 01/05/20 History Montelukast [Singulair] 10 mg PO DAILY 01/31/18 01/05/20 History Pravastatin Sodium [Pravachol] 40 mg PO DAILY 01/31/18 01/05/20 History lisinopriL 40 mg PO DAILY 01/31/18 01/05/20 History traZODone HCL 200 mg PO HS 01/31/18 01/05/20 History ALPRAZolam [Xanax] 0.5 mg PO BID PRN 01/05/20 01/05/20 History Folic Acid 1 mg PO DAILY 01/05/20 01/05/20 History Ipratropium/Albuter 20-100Mcg 1 puff INHALATION RT-QID 01/05/20 01/05/20 History [Combivent Respimat 20-100Mcg Inhaler] Leflunomide [Arava] 20 mg PO DAILY 01/05/20 01/05/20 History metHOTREXate sodium [Methotrexate] 25 mg PO WATKINS 01/05/20 01/05/20 History Allergies Allergy/AdvReac Type Severity Reaction Status Date / Time No Known Allergies Allergy Verified 01/05/20 20:51 Physical Exam Vitals: Vital Signs Temp Pulse Resp BP Pulse Ox 01/06/20 14:55 95 18 178/91 98 01/06/20 10:39 99 18 167/77 96 01/06/20 06:57 99.1 F 90 18 127/89 100 01/06/20 04:28 99 16 192/84 95 01/05/20 23:34 93 18 184/89 95 01/05/20 17:30 98.4 F 114 H 18 173/74 97 In general patient is alert and oriented 3 in no apparent distress HEENT head normocephalic and atraumatic Neck is supple no JVD no goiter no lymphadenopathy Chest exam reveals a few scattered rhonchi no wheezing Cardiac exam reveals regular heart sounds no gallops no murmurs Abdomen is soft with tenderness in the epigastric and right upper quadrant area no organomegaly with normal bowel sounds Extremity exam reveals no edema no cyanosis or clubbing Neurological examination reveals no gross focal deficit Results CBC & Chem 7: 01/06/20 04:24 01/06/20 04:24 Labs: Abnormal Lab Results - Last 24 Hours (Table) 01/05/20 01/05/20 01/05/20 Range/Units 20:05 20:05 20:05 WBC 16.7 H (3.8-10.6) k/uL RBC 5.49 H (3.80-5.40) m/uL Hgb 16.5 H (11.4-16.0) gm/dL Hct 51.0 H (34.0-46.0) % RDW 17.2 H (11.5-15.5) % Plt Count (150-450) k/uL Neutrophils # 14.1 H (1.3-7.7) k/uL Monocytes # (0-1.0) k/uL Sodium 136 L (137-145) mmol/L Potassium 3.0 L (3.5-5.1) mmol/L Carbon Dioxide 31 H (22-30) mmol/L Creatinine (0.52-1.04) mg/dL Glucose 159 H (74-99) mg/dL Calcium (8.4-10.2) mg/dL Total Bilirubin 2.8 H (0.2-1.3) mg/dL ALT 68 H (4-34) U/L Total Protein (6.3-8.2) g/dL Albumin (3.5-5.0) g/dL Lipase 16 L (23-300) U/L Ur Specific [place] >1.050 H (1.001-1.035) Urine Protein 1+ H (Negative) Urine Ketones 2+ H (Negative) Ur Squamous Epith Cells 18 H (0-4) /hpf Urine Bacteria Rare H (None) /hpf Urine Mucus Few H (None) /hpf 01/06/20 01/06/20 Range/Units 04:24 04:24 WBC 18.9 H (3.8-10.6) k/uL RBC (3.80-5.40) m/uL Hgb (11.4-16.0) gm/dL Hct (34.0-46.0) % RDW 17.6 H (11.5-15.5) % Plt Count 138 L (150-450) k/uL Neutrophils # 15.5 H (1.3-7.7) k/uL Monocytes # 1.5 H (0-1.0) k/uL Sodium 136 L (137-145) mmol/L Potassium 3.4 L (3.5-5.1) mmol/L Carbon Dioxide (22-30) mmol/L Creatinine 0.39 L (0.52-1.04) mg/dL Glucose 128 H (74-99) mg/dL Calcium 8.1 L (8.4-10.2) mg/dL Total Bilirubin 2.5 H (0.2-1.3) mg/dL ALT 58 H (4-34) U/L Total Protein 5.7 L (6.3-8.2) g/dL Albumin 2.9 L (3.5-5.0) g/dL Lipase (23-300) U/L Ur Specific [place] (1.001-1.035) Urine Protein (Negative) Urine Ketones (Negative) Ur Squamous Epith Cells (0-4) /hpf Urine Bacteria (None) /hpf Urine Mucus (None) /hpf Assessment and Plan Plan: 1. Cholelithiasis possible acute cholecystitis 2. Leukocytosis 3. Chest tightness with slight elevation in troponin level 4. Underlying history of COPD 5. Underlying history of depression and anxiety disorder At this time patient is admitted to the observation unit she was started on IV antibiotic Zosyn Surgical consultation infectious disease consultation and cardiology consultation were requested Medications reviewed and reordered Will hold Lexapro at this time due to concomitant use of Zofran
[2020-01-06] MEDS: SODIUM CHLORIDE 0.9% 1,000 ML IV SCH ×2 (15:31→20:11)
[2020-01-06] MEDS: IPRATROPIUM-ALBUTEROL 3 ML NEB INHALATION SCH ×2 (15:32→19:44)
[2020-01-06] MEDS ORDERED: lisinopriL 20 MG TAB PO STA (15:42)
[2020-01-06] MEDS: PIPERACILLIN-TAZOBACTAM 3.375 GM in SODIUM CHLORIDE 0.9% 100 ML IVPB SCH (15:43)
--- NOTE | 2020-01-06 17:18 | P.GSCN ---
History of Present Illness Consult date: 01/06/20 Reason for Consult: Right-sided abdominal pain History of present illness: 64-year-old female comes in the hospital after increasing pain right side of abdomen. History of diverticulitis in the past. Thought this may be another episode of diverticulitis. States her symptoms have been going on for the last 2 months or so. Mild nausea and some vomiting at times. Food tends to make pain worse. CAT scan was performed but no definite abnormalities were noted. Ultrasound was then performed which showed mild gallbladder wall thickening and a positive Charlton sign. Patient states her pain is in the right upper and lower quadrants. Bilirubin slightly elevated. Other liver enzymes normal. White blood cell count also elevated. Review of Systems The patient denies any acute changes in vision or hearing, no dysphagia or odynophagia, no chest pain or shortness of breath, no dysuria or hematuria, no headache, no runny nose, no rectal bleeding or melena, no unexplained weight loss Past Medical History Past Medical History: COPD, Deep Vein Thrombosis (DVT), Hyperlipidemia, Hypertension, Pneumonia, Skin Disorder Additional Past Medical History / Comment(s): L3 fx, diverticulitis, multiple skin lesions on body.pt states she picks her skin. History of Any Multi-Drug Resistant Organisms: None Reported Past Surgical History: No Surgical Hx Reported Additional Past Surgical History / Comment(s): colonoscopy Past Anesthesia/Blood Transfusion Reactions: No Reported Reaction Past Psychological History: Anxiety, Depression Smoking Status: Current every day smoker Past Alcohol Use History: Occasional Past Drug Use History: None Reported - Past Family History Mother Family Medical History: No Reported History Additional Family Medical History / Comment(s): from old age Father Family Medical History: Cancer Additional Family Medical History / Comment(s): throat cancer Medications and Allergies Home Medications Medication Instructions Recorded Confirmed Type Budesonide-Formot 160-4.5 Mcg 2 puff INHALATION RT-BID 01/31/18 01/05/20 History [Symbicort 160-4.5 Mcg Inhaler] Escitalopram [Lexapro] 20 mg PO DAILY 01/31/18 01/05/20 History Montelukast [Singulair] 10 mg PO DAILY 01/31/18 01/05/20 History Pravastatin Sodium [Pravachol] 40 mg PO DAILY 01/31/18 01/05/20 History lisinopriL 40 mg PO DAILY 01/31/18 01/05/20 History traZODone HCL 200 mg PO HS 01/31/18 01/05/20 History ALPRAZolam [Xanax] 0.5 mg PO BID PRN 01/05/20 01/05/20 History Folic Acid 1 mg PO DAILY 01/05/20 01/05/20 History Ipratropium/Albuter 20-100Mcg 1 puff INHALATION RT-QID 01/05/20 01/05/20 History [Combivent Respimat 20-100Mcg Inhaler] Leflunomide [Arava] 20 mg PO DAILY 01/05/20 01/05/20 History metHOTREXate sodium [Methotrexate] 25 mg PO WATKINS 01/05/20 01/05/20 History Allergies Allergy/AdvReac Type Severity Reaction Status Date / Time No Known Allergies Allergy Verified 01/05/20 20:51 Surgical - Exam Vital Signs Temp Pulse Resp BP Pulse Ox 98.4 F 114 H 18 173/74 97 01/05/20 17:30 01/05/20 17:30 01/05/20 17:30 01/05/20 17:30 01/05/20 17:30 Physical exam: General: Well-developed, well-nourished HEENT: Normocephalic, sclerae nonicteric Abdomen: Right upper and right lower quadrant tenderness, no rebound or guarding, no palpable masses, nondistended Extremities: No edema Neuro: Alert and oriented Results - Labs 01/06/20 04:24 01/06/20 04:24 Abnormal Lab Results - Last 24 Hours (Table) 01/05/20 01/05/20 01/05/20 Range/Units 20:05 20:05 20:05 WBC 16.7 H (3.8-10.6) k/uL RBC 5.49 H (3.80-5.40) m/uL Hgb 16.5 H (11.4-16.0) gm/dL Hct 51.0 H (34.0-46.0) % RDW 17.2 H (11.5-15.5) % Plt Count (150-450) k/uL Neutrophils # 14.1 H (1.3-7.7) k/uL Monocytes # (0-1.0) k/uL Sodium 136 L (137-145) mmol/L Potassium 3.0 L (3.5-5.1) mmol/L Carbon Dioxide 31 H (22-30) mmol/L Creatinine (0.52-1.04) mg/dL Glucose 159 H (74-99) mg/dL Calcium (8.4-10.2) mg/dL Total Bilirubin 2.8 H (0.2-1.3) mg/dL ALT 68 H (4-34) U/L Total Protein (6.3-8.2) g/dL Albumin (3.5-5.0) g/dL Lipase 16 L (23-300) U/L Ur Specific [place] >1.050 H (1.001-1.035) Urine Protein 1+ H (Negative) Urine Ketones 2+ H (Negative) Ur Squamous Epith Cells 18 H (0-4) /hpf Urine Bacteria Rare H (None) /hpf Urine Mucus Few H (None) /hpf 01/06/20 01/06/20 Range/Units 04:24 04:24 WBC 18.9 H (3.8-10.6) k/uL RBC (3.80-5.40) m/uL Hgb (11.4-16.0) gm/dL Hct (34.0-46.0) % RDW 17.6 H (11.5-15.5) % Plt Count 138 L (150-450) k/uL Neutrophils # 15.5 H (1.3-7.7) k/uL Monocytes # 1.5 H (0-1.0) k/uL Sodium 136 L (137-145) mmol/L Potassium 3.4 L (3.5-5.1) mmol/L Carbon Dioxide (22-30) mmol/L Creatinine 0.39 L (0.52-1.04) mg/dL Glucose 128 H (74-99) mg/dL Calcium 8.1 L (8.4-10.2) mg/dL Total Bilirubin 2.5 H (0.2-1.3) mg/dL ALT 58 H (4-34) U/L Total Protein 5.7 L (6.3-8.2) g/dL Albumin 2.9 L (3.5-5.0) g/dL Lipase (23-300) U/L Ur Specific [place] (1.001-1.035) Urine Protein (Negative) Urine Ketones (Negative) Ur Squamous Epith Cells (0-4) /hpf Urine Bacteria (None) /hpf Urine Mucus (None) /hpf Diabetes panel 01/05/20 01/06/20 Range/Units 20:05 04:24 Sodium 136 L 136 L (137-145) mmol/L Potassium 3.0 L 3.4 L (3.5-5.1) mmol/L Chloride 98 102 (98-107) mmol/L Carbon Dioxide 31 H 30 (22-30) mmol/L BUN 13 11 (7-17) mg/dL Creatinine 0.52 0.39 L (0.52-1.04) mg/dL Glucose 159 H 128 H (74-99) mg/dL Calcium 9.0 8.1 L (8.4-10.2) mg/dL AST 30 33 (14-36) U/L ALT 68 H 58 H (4-34) U/L Alkaline Phosphatase 120 89 (38-126) U/L Total Protein 6.6 5.7 L (6.3-8.2) g/dL Albumin 3.6 2.9 L (3.5-5.0) g/dL Calcium panel 01/05/20 01/06/20 Range/Units 20:05 04:24 Calcium 9.0 8.1 L (8.4-10.2) mg/dL Albumin 3.6 2.9 L (3.5-5.0) g/dL Pituitary panel 01/05/20 01/06/20 Range/Units 20:05 04:24 Sodium 136 L 136 L (137-145) mmol/L Potassium 3.0 L 3.4 L (3.5-5.1) mmol/L Chloride 98 102 (98-107) mmol/L Carbon Dioxide 31 H 30 (22-30) mmol/L BUN 13 11 (7-17) mg/dL Creatinine 0.52 0.39 L (0.52-1.04) mg/dL Glucose 159 H 128 H (74-99) mg/dL Calcium 9.0 8.1 L (8.4-10.2) mg/dL Adrenal panel 01/05/20 01/06/20 Range/Units 20:05 04:24 Sodium 136 L 136 L (137-145) mmol/L Potassium 3.0 L 3.4 L (3.5-5.1) mmol/L Chloride 98 102 (98-107) mmol/L Carbon Dioxide 31 H 30 (22-30) mmol/L BUN 13 11 (7-17) mg/dL Creatinine 0.52 0.39 L (0.52-1.04) mg/dL Glucose 159 H 128 H (74-99) mg/dL Calcium 9.0 8.1 L (8.4-10.2) mg/dL Total Bilirubin 2.8 H 2.5 H (0.2-1.3) mg/dL AST 30 33 (14-36) U/L ALT 68 H 58 H (4-34) U/L Alkaline Phosphatase 120 89 (38-126) U/L Total Protein 6.6 5.7 L (6.3-8.2) g/dL Albumin 3.6 2.9 L (3.5-5.0) g/dL Assessment and Plan (1) Right sided abdominal pain Narrative/Plan: 64-year-old female with right-sided abdominal pain. Somewhat atypical for cholecystitis given the right lower quadrant tenderness in addition to the right upper quadrant tenderness. We'll repeat labs tomorrow. HIDA scan likely will not be of significant value. If symptoms persist and no other etiologies identified would proceed with laparoscopic cystectomy with diagnostic laparoscopy. Await cardiology evaluation for chest pain. Current Visit: Yes Status: Acute Code(s): R10.9 - UNSPECIFIED ABDOMINAL PAIN SNOMED Code(s): 456150969
[2020-01-06] MEDS: SYMBICORT 160-4.5 MCG INHALER INHALATION SCH (19:43)
[2020-01-06] MEDS: traZODone HCL 100 MG TAB PO SCH (21:42)
--- NOTE | 2020-01-06 22:58 | P.CONS ---
History of Present Illness - Reason for Consult Consult date: 01/06/20 Abdominal pain and leukocytosis Requesting physician: Anjum Prieto - Chief Complaint Abdominal pain x few days - History of Present Illness Patient is a 64-year-old female presenting to the ER at [facility] yesterday in the evening for evaluation of abdominal pain patient pain has been mostly in the lower right abdominal area the patient described the pain to be more of a dull aching to sharp intensity is almost 7-8 out of 10 and some radiation across the right lower abdominal wall, the patient be complaining of nausea but no vomiting has been complaining of off and on diarrhea for the last few weeks she denies high-grade fever however did have some tenderness at the Center the patient was evaluated by the physician on arrival to the area patient was afebrile however she did have elevated white count and liver enzymes are mildly elevated UA is negative patient did have CT of abdominal pelvis with contrast did not show any acute abnormality subsequently the patient did have an ultrasound of the liver and gallbladder area which did shows thickened gallbladder wall and positive Charlton sign patient has been treated with the Zosyn however white count has shown some worsening insufficiency was consulted for further management of antibiotic therapy Review of Systems Positive point has been mentioned in the HPI rest of the systems are negative Past Medical History Past Medical History: COPD, Deep Vein Thrombosis (DVT), Hyperlipidemia, Hypertension, Pneumonia, Skin Disorder Additional Past Medical History / Comment(s): L3 fx, diverticulitis, multiple skin lesions on body.pt states she picks her skin. History of Any Multi-Drug Resistant Organisms: None Reported Past Surgical History: No Surgical Hx Reported Additional Past Surgical History / Comment(s): colonoscopy Past Anesthesia/Blood Transfusion Reactions: No Reported Reaction Past Psychological History: Anxiety, Depression Smoking Status: Current every day smoker Past Alcohol Use History: Occasional Past Drug Use History: None Reported - Past Family History Mother Family Medical History: No Reported History Additional Family Medical History / Comment(s): from old age Father Family Medical History: Cancer Additional Family Medical History / Comment(s): throat cancer Medications and Allergies Home Medications Medication Instructions Recorded Confirmed Type Budesonide-Formot 160-4.5 Mcg 2 puff INHALATION RT-BID 01/31/18 01/05/20 History [Symbicort 160-4.5 Mcg Inhaler] Escitalopram [Lexapro] 20 mg PO DAILY 01/31/18 01/05/20 History Montelukast [Singulair] 10 mg PO DAILY 01/31/18 01/05/20 History Pravastatin Sodium [Pravachol] 40 mg PO DAILY 01/31/18 01/05/20 History lisinopriL 40 mg PO DAILY 01/31/18 01/05/20 History traZODone HCL 200 mg PO HS 01/31/18 01/05/20 History ALPRAZolam [Xanax] 0.5 mg PO BID PRN 01/05/20 01/05/20 History Folic Acid 1 mg PO DAILY 01/05/20 01/05/20 History Ipratropium/Albuter 20-100Mcg 1 puff INHALATION RT-QID 01/05/20 01/05/20 History [Combivent Respimat 20-100Mcg Inhaler] Leflunomide [Arava] 20 mg PO DAILY 01/05/20 01/05/20 History metHOTREXate sodium [Methotrexate] 25 mg PO WATKINS 01/05/20 01/05/20 History Allergies Allergy/AdvReac Type Severity Reaction Status Date / Time No Known Allergies Allergy Verified 01/05/20 20:51 Physical Exam Vitals: Vital Signs Temp Pulse Pulse Resp BP BP Pulse Ox 01/06/20 15:42 76 16 01/06/20 15:35 75 16 01/06/20 14:55 95 18 178/91 98 01/06/20 10:39 99 18 167/77 96 01/06/20 08:19 98.1 F 105 H 14 210/87 94 L 01/06/20 06:57 99.1 F 90 18 127/89 100 01/06/20 04:28 99 16 192/84 95 01/05/20 23:34 93 18 184/89 95 01/05/20 17:30 98.4 F 114 H 18 173/74 97 Intake and Output 01/06/20 01/06/20 01/06/20 06:59 14:59 22:59 Other: # Voids 2 Weight 74.389 kg GENERAL DESCRIPTION: Middle-aged female lying in bed, no distress. No tachypnea or accessory muscle of respiration use. HEENT: Shows Pallor , no scleral icterus. Oral mucous membrane is dry. No pharyngeal erythema or thrush NECK: Trachea central, no thyromegaly. LUNGS: Unlabored breathing. Clear to auscultation anteriorly. No wheeze or crackle. HEART: S1, S2, regular rate and rhythm. No loud murmur ABDOMEN: Soft, lower quadrant tenderness , no guarding or rigidity, no organomegaly EXTREMITIES: No edema of feet. SKIN: No rash, no masses palpable. NEUROLOGICAL: The patient is awake, alert, oriented x3, mood and affect normal. Results CBC & Chem 7: 01/06/20 04:24 01/06/20 04:24 Labs: Abnormal Lab Results - Last 24 Hours (Table) 01/05/20 01/05/20 01/05/20 Range/Units 20:05 20:05 20:05 WBC 16.7 H (3.8-10.6) k/uL RBC 5.49 H (3.80-5.40) m/uL Hgb 16.5 H (11.4-16.0) gm/dL Hct 51.0 H (34.0-46.0) % RDW 17.2 H (11.5-15.5) % Plt Count (150-450) k/uL Neutrophils # 14.1 H (1.3-7.7) k/uL Monocytes # (0-1.0) k/uL Sodium 136 L (137-145) mmol/L Potassium 3.0 L (3.5-5.1) mmol/L Carbon Dioxide 31 H (22-30) mmol/L Creatinine (0.52-1.04) mg/dL Glucose 159 H (74-99) mg/dL Calcium (8.4-10.2) mg/dL Total Bilirubin 2.8 H (0.2-1.3) mg/dL ALT 68 H (4-34) U/L Total Protein (6.3-8.2) g/dL Albumin (3.5-5.0) g/dL Lipase 16 L (23-300) U/L Ur Specific [place] >1.050 H (1.001-1.035) Urine Protein 1+ H (Negative) Urine Ketones 2+ H (Negative) Ur Squamous Epith Cells 18 H (0-4) /hpf Urine Bacteria Rare H (None) /hpf Urine Mucus Few H (None) /hpf 01/06/20 01/06/20 Range/Units 04:24 04:24 WBC 18.9 H (3.8-10.6) k/uL RBC (3.80-5.40) m/uL Hgb (11.4-16.0) gm/dL Hct (34.0-46.0) % RDW 17.6 H (11.5-15.5) % Plt Count 138 L (150-450) k/uL Neutrophils # 15.5 H (1.3-7.7) k/uL Monocytes # 1.5 H (0-1.0) k/uL Sodium 136 L (137-145) mmol/L Potassium 3.4 L (3.5-5.1) mmol/L Carbon Dioxide (22-30) mmol/L Creatinine 0.39 L (0.52-1.04) mg/dL Glucose 128 H (74-99) mg/dL Calcium 8.1 L (8.4-10.2) mg/dL Total Bilirubin 2.5 H (0.2-1.3) mg/dL ALT 58 H (4-34) U/L Total Protein 5.7 L (6.3-8.2) g/dL Albumin 2.9 L (3.5-5.0) g/dL Lipase (23-300) U/L Ur Specific [place] (1.001-1.035) Urine Protein (Negative) Urine Ketones (Negative) Ur Squamous Epith Cells (0-4) /hpf Urine Bacteria (None) /hpf Urine Mucus (None) /hpf Assessment and Plan Assessment: 1- patient presented to the hospital abdominal pain seemed to be chronic with recent worsening and has been mostly in right lower abdominal area this patient seek abdominal pelvis was negative, however ultrasound is suspicious for cholecystitis in this patient did have a elevated bilirubin and AST a consult for possible cholecystitis versus other abdominal pathology and will need to cover for enteric gram-negative pathogen (1) Intractable abdominal pain Current Visit: Yes Status: Acute Code(s): R10.9 - UNSPECIFIED ABDOMINAL PAIN SNOMED Code(s): 25258558 (2) Leukocytosis Current Visit: Yes Status: Acute Code(s): D72.829 - ELEVATED WHITE BLOOD CELL COUNT, UNSPECIFIED SNOMED Code(s): 217870190 Plan: 1- patient to continue his Zosyn 3.75 g every 8 hours 2- possible HIDA scan versus diagnosis laparoscopy per surgery in the am We will follow on clinical condition and cultures to further adjust medication if needed Thank you for this consultation will follow this patient with you Time with Patient: Greater than 30
[2020-01-07] MEDS: PIPERACILLIN-TAZOBACTAM 3.375 GM in SODIUM CHLORIDE 0.9% 100 ML IVPB SCH ×4 (00:30→23:50)
[2020-01-07] MEDS ORDERED: Potassium Replacement Protocol 1 EACH MISC MISCELLANE PRN ×2 (02:00→09:53)
[2020-01-07] MEDS: POTASSIUM CHLORIDE ER 20 MEQ TAB.ER PO SCH ×3 (02:09→10:13)
[2020-01-07] MEDS: MORPHINE SULFATE 4 MG/ML SYRINGE IV PRN ×4 (04:31→18:38)
[2020-01-07 04:34] LABS: Anisocytosis Slight; Basophils # (A) 0.1 k/uL (0-0.2); Basophils % (A) 0 %; Eosinophils # (A) 0.1 k/uL (0-0.7); Eosinophils % (A) 1 %; HCT 41.1 % (34.0-46.0); HGB 12.8 gm/dL (11.4-16.0); Lymphocytes # (A) 0.7 k/uL (1.0-4.8); Lymphocytes % (A) 4 %; MCHC 31.1 g/dL (31.0-37.0); MCV 96.4 fL (80.0-100.0); Macrocytosis Slight; Monocytes # (A) 1.4 k/uL (0-1.0); Monocytes % (A) 7 %; Neutrophils # (A) 16.1 k/uL (1.3-7.7); Neutrophils % (A) 87 %; Platelet Count 117 k/uL (150-450); RBC 4.26 m/uL (3.80-5.40); RDW 17.6 % (11.5-15.5); WBC 18.6 k/uL (3.8-10.6)
[2020-01-07 04:44] LABS: ALT 51 U/L (4-34); AST 38 U/L (14-36); African American GFR (CKD) >90 (>60 ml/min/1.73 sqM); Albumin 2.6 g/dL (3.5-5.0); Alkaline Phosphatase 101 U/L (38-126); Anion Gap 3 mmol/L; Blood Urea Nitrogen 4 mg/dL (7-17); Calcium 7.9 mg/dL (8.4-10.2); Carbon Dioxide 29 mmol/L (22-30); Chloride 101 mmol/L (98-107); Glucose 95 mg/dL (74-99); Non-African American GFR(CKD) >90 (>60 ml/min/1.73 sqM); Potassium 3.4 mmol/L (3.5-5.1); Sodium 133 mmol/L (137-145); Total Bilirubin 4.1 mg/dL (0.2-1.3); Total Protein 5.2 g/dL (6.3-8.2)
[2020-01-07] MEDS: SODIUM CHLORIDE 0.9% 1,000 ML IV SCH ×2 (05:35→15:22)
[2020-01-07] MEDS: IPRATROPIUM-ALBUTEROL 3 ML NEB INHALATION SCH ×4 (08:21→19:04)
[2020-01-07] MEDS: lisinopriL 20 MG TAB PO SCH (08:22)
[2020-01-07] MEDS: MONTELUKAST 10 MG TAB PO SCH (08:22)
[2020-01-07] MEDS: PRAVASTATIN SODIUM 40 MG TAB PO SCH (08:22)
[2020-01-07] MEDS: FOLIC ACID 1 MG TAB PO SCH (08:22)
[2020-01-07] MEDS: LEFLUNOMIDE 20 MG TAB PO SCH (08:22)
[2020-01-07] MEDS: SYMBICORT 160-4.5 MCG INHALER INHALATION SCH ×2 (08:22→19:05)
[2020-01-07] MEDS ORDERED: ESCITALOPRAM 20 MG TAB PO SCH (09:00)
--- NOTE | 2020-01-07 10:29 | P.CRDCN ---
History of Present Illness History of present illness: HISTORY OF PRESENTING ILLNESS This is a pleasant 64-year-old female past medical history significant for chronic nicotine dependence, COPD, hypertension and dyslipidemia. 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 We have been asked to see in consultation for chest pain. She presented to the hospital with symptoms of right upper quadrant abdominal pain, nausea and vomiting. She denies ever having had discomfort in the chest however states that the discomfort in the right upper quadrant seems to be pushing up on all times. She denies shortness of breath, dizziness or palpitations. She has been diagnosed with atypical cholecystitis and is scheduled to undergo laparoscopic cholecystectomy with Dr. Bloom tomorrow. She is seen and examined sitting up in bed undergoing a nebulizer treatment. She denies chest pain at this time. She states her abdominal pain is controlled currently. DIAGNOSTICS EKG reveals sinus tachycardia heart rate of 110, right axis deviation, T-wave inversion in the inferior leads. There is no old EKG for comparison. Laboratory reviewed, WBC 18.6, hemoglobin 12.8, platelets 117, sodium 133, potassium 3.4, creatinine 0.36, troponin negative 3. Current cardiac medications include pravastatin 40 mg daily and lisinopril 40 mg daily. REVIEW OF SYSTEMS At the time of my exam: CONSTITUTIONAL: Denies fever or chills. CARDIOVASCULAR: Denies chest pain, shortness of breath, orthopnea, PND or palpitations. RESPIRATORY: Denies cough. GASTROINTESTINAL: Denies abdominal pain, diarrhea, constipation, nausea or vomiting. MUSCULOSKELETAL: Denies myalgias. NEUROLOGIC: Denies numbness, tingling or weakness. ENDOCRINE: Denies fatigue, weight change, polydipsia or polyurina. GENITOURINARY: Denies burning, hematuria or urgency with micturation. HEMATOLOGIC: Denies history of anemia or bleeding. PHYSICAL EXAMINATION Blood pressure 175/71 heart rate 80 afebrile and maintaining oxygen saturation on nasal cannula. CONSTITUTIONAL: No apparent distress. HEENT: Head is normocephalic. Pupils are equal, round. Sclerae anicteric. Mucous membranes of the mouth are moist. No JVD. No carotid bruit. CHEST EXAMINATION: Expiratory wheezes. No chest wall tenderness is noted on palpation or with deep breathing. HEART EXAMINATION: Regular rate and rhythm. S1, S2 heard. No murmurs, gallops or rub. ABDOMEN: Soft, nontender. Positive bowel sounds. EXTREMITIES: 2+ peripheral pulses, no lower extremity edema and no calf tenderness. NEUROLOGIC EXAMINATION: Patient is awake, alert and oriented x3. ASSESSMENT Chest pain, atypical. An acute event has been ruled out. Abnormal EKG Atypical cholecystitis Leukocytosis Hypertension Dyslipidemia COPD Chronic nicotine dependence PLAN The patient denies chest pain. Pain is in the abdomen primarily. An acute coronary event has been ruled out. Obtain 2D echocardiogram and doppler study to assess cardiac structure and function. Check baseline chest xray. There are no acute contraindications to undergo surgical intervention. Recommend outpatient stress test once healed from surgery. Would also initiate aspirin 81 mg daily post-operatively. Thank you kindly for this consultation. Nurse Practitioner note has been reviewed, I agree with a documented findings and plan of care. Patient was seen and examined. Past Medical History Past Medical History: COPD, Deep Vein Thrombosis (DVT), Hyperlipidemia, Hypertension, Pneumonia, Skin Disorder Additional Past Medical History / Comment(s): L3 fx, diverticulitis, multiple skin lesions on body.pt states she picks her skin. History of Any Multi-Drug Resistant Organisms: None Reported Past Surgical History: No Surgical Hx Reported Additional Past Surgical History / Comment(s): colonoscopy Past Anesthesia/Blood Transfusion Reactions: No Reported Reaction Past Psychological History: Anxiety, Depression Smoking Status: Current every day smoker Past Alcohol Use History: Occasional Past Drug Use History: None Reported - Past Family History Mother Family Medical History: No Reported History Additional Family Medical History / Comment(s): from old age Father Family Medical History: Cancer Additional Family Medical History / Comment(s): throat cancer Medications and Allergies Home Medications Medication Instructions Recorded Confirmed Type Budesonide-Formot 160-4.5 Mcg 2 puff INHALATION RT-BID 01/31/18 01/05/20 History [Symbicort 160-4.5 Mcg Inhaler] Escitalopram [Lexapro] 20 mg PO DAILY 01/31/18 01/05/20 History Montelukast [Singulair] 10 mg PO DAILY 01/31/18 01/05/20 History Pravastatin Sodium [Pravachol] 40 mg PO DAILY 01/31/18 01/05/20 History lisinopriL 40 mg PO DAILY 01/31/18 01/05/20 History traZODone HCL 200 mg PO HS 01/31/18 01/05/20 History ALPRAZolam [Xanax] 0.5 mg PO BID PRN 01/05/20 01/05/20 History Folic Acid 1 mg PO DAILY 01/05/20 01/05/20 History Ipratropium/Albuter 20-100Mcg 1 puff INHALATION RT-QID 01/05/20 01/05/20 History [Combivent Respimat 20-100Mcg Inhaler] Leflunomide [Arava] 20 mg PO DAILY 01/05/20 01/05/20 History metHOTREXate sodium [Methotrexate] 25 mg PO WATKINS 01/05/20 01/05/20 History Allergies Allergy/AdvReac Type Severity Reaction Status Date / Time No Known Allergies Allergy Verified 01/05/20 20:51 Physical Exam Vitals: Vital Signs Temp Pulse Pulse Resp BP BP Pulse Ox 01/07/20 08:38 80 01/07/20 08:31 98.2 F 99 20 175/71 95 01/07/20 08:23 78 01/07/20 02:40 98.3 F 99 16 182/69 94 L 01/06/20 20:08 98.3 F 108 H 18 135/77 95 01/06/20 19:56 75 01/06/20 19:46 72 16 01/06/20 17:06 136/81 01/06/20 15:42 76 16 01/06/20 15:35 75 16 01/06/20 14:55 95 18 178/91 98 01/06/20 10:39 99 18 167/77 96 Intake and Output 01/06/20 01/07/20 01/07/20 22:59 06:59 14:59 Other: Voiding Method Toilet Toilet Toilet # Voids 2 # Emeses 2 Results 01/07/20 04:09 01/07/20 04:09 Cardiac Enzymes 01/07/20 Range/Units 04:09 AST 38 H (14-36) U/L CBC 01/07/20 Range/Units 04:09 WBC 18.6 H (3.8-10.6) k/uL RBC 4.26 (3.80-5.40) m/uL Hgb 12.8 (11.4-16.0) gm/dL Hct 41.1 (34.0-46.0) % Plt Count 117 L (150-450) k/uL Comprehensive Metabolic Panel 01/07/20 Range/Units 04:09 Sodium 133 L (137-145) mmol/L Potassium 3.4 L (3.5-5.1) mmol/L Chloride 101 (98-107) mmol/L Carbon Dioxide 29 (22-30) mmol/L BUN 4 L (7-17) mg/dL Creatinine 0.36 L (0.52-1.04) mg/dL Glucose 95 (74-99) mg/dL Calcium 7.9 L (8.4-10.2) mg/dL AST 38 H (14-36) U/L ALT 51 H (4-34) U/L Alkaline Phosphatase 101 (38-126) U/L Total Protein 5.2 L (6.3-8.2) g/dL Albumin 2.6 L (3.5-5.0) g/dL Current Medications Generic Name Dose Route Start Last Admin Trade Name Freq PRN Reason Stop Dose Admin Albuterol/Ipratropium 3 ml 01/06/20 16:00 01/07/20 08:21 Ipratropium-Albuterol 3 Ml Neb INHALATION 3 ml RT-QID SHANNON Administration Alprazolam 0.5 mg 01/06/20 15:07 Alprazolam 0.5 Mg Tab PO BID PRN Anxiety Budesonide/Formoterol Fumarate 2 puff 01/06/20 20:00 01/07/20 08:22 Symbicort 160-4.5 Mcg Inhaler INHALATION 2 puff RT-BID SHANNON Administration Folic Acid 1 mg 01/07/20 09:00 01/07/20 08:22 Folic Acid 1 Mg Tab PO 1 mg DAILY SHANNON Administration Sodium Chloride 1,000 mls @ 100 mls/hr 01/05/20 23:00 01/07/20 05:35 Saline 0.9% IV 100 mls/hr .Q10H SHANNON Administration Piperacillin Sod/Tazobactam 100 mls @ 25 mls/hr 01/06/20 16:00 01/07/20 08:22 Sod 3.375 gm/ Sodium Chloride IVPB 25 mls/hr Q8HR SHANNON Administration Leflunomide 20 mg 01/07/20 09:00 01/07/20 08:22 Leflunomide 20 Mg Tab PO 20 mg DAILY SHANNON Administration Lisinopril 40 mg 01/07/20 09:00 01/07/20 08:22 Lisinopril 20 Mg Tab PO 40 mg DAILY SHANNON Administration Methotrexate 25 mg 01/11/20 09:00 Methotrexate Sodium 2.5 Mg Tab PO WATKINS SHANNON Miscellaneous Information 1 each 01/05/20 22:42 Potassium Replacement Protocol 1 Each Misc MISCELLANE DAILY PRN Per Protocol Protocol Miscellaneous Information 1 each 01/07/20 02:00 Potassium Replacement Protocol 1 Each Misc MISCELLANE DAILY PRN Per Protocol Protocol Montelukast Sodium 10 mg 01/07/20 09:00 01/07/20 08:22 Montelukast 10 Mg Tab PO 10 mg DAILY SHANNON Administration Morphine Sulfate 4 mg 01/05/20 22:53 01/07/20 08:27 Morphine Sulfate 4 Mg/Ml Syringe IV 4 mg Q4HR PRN Administration Severe Pain Naloxone HCl 0.2 mg 01/05/20 22:53 Naloxone 0.4 Mg/Ml 1 Ml Vial IV Q2M PRN Opioid Reversal Ondansetron HCl 4 mg 01/05/20 22:53 Ondansetron 4 Mg/2 Ml Vial IVP Q8HR PRN Nausea And Vomiting Pravastatin Sodium 40 mg 01/07/20 09:00 01/07/20 08:22 Pravastatin Sodium 40 Mg Tab PO 40 mg DAILY SHANNON Administration Trazodone HCl 200 mg 01/06/20 21:00 01/06/20 21:42 Trazodone Hcl 100 Mg Tab PO 200 mg HS SHANNON Administration Intake and Output 01/06/20 01/07/20 01/07/20 22:59 06:59 14:59 Other: Voiding Method Toilet Toilet Toilet # Voids 2 # Emeses 2 01/07/20 04:09 01/07/20 04:09
--- NOTE | 2020-01-07 11:06 | XR ---
EXAMINATION TYPE: XR chest 2V DATE OF EXAM: 01/07/2020 COMPARISON: 12/31/2015 TECHNIQUE: PA and lateral views submitted. HISTORY: Shortness of breath FINDINGS: The lungs are clear and there is no pneumothorax, pleural effusion, or focal pneumonia. Hyperinflat ion suggests COPD. Heart size normal. There is a nodular density in the right apex measuring 1.5 cm. Hypertrophic and degenerative change of the spine. IMPRESSION: 1. No acute process. COPD. 2. There is a 1.5 cm right apical nodule. Correlate with CT scan.
--- NOTE | 2020-01-07 11:55 | ECHOF ---
Referral Reason:cp MEASUREMENTS -------- HEIGHT: 162.6 cm WEIGHT: 74.4 kg BP: IVSd: 1.5 cm (0.6 - 1.1) LVIDd: 4.1 cm (3.9 - 5.3) LVPWd: 1.2 cm (0.6 - 1.1) IVSs: 1.6 cm LVIDs: 3.4 cm LVPWs: 1.4 cm LA Diam: 3.1 cm (2.7 - 3.8) LAESV Index (A-L): 21.66 ml/m MV EXCURSION: 12.538 mm (> 18.000) MV EF SLOPE: 70 mm/s (70 - 150) EPSS: 0.3 cm MV E Darren: 0.60 m/s MV DecT: 220 ms MV A Darren: 1.01 m/s MV E/A Ratio: 0.60 RAP: 5.00 mmHg FINDINGS -------- Sinus rhythm. This was a technically adequate study. LV size, wall thickness and systolic function are normal, with an EF greater than 55%. The left derrick tricular size is normal. The diastolic filling pattern is normal for the age of the patient 22.49. The right ventricle is normal in size. The left atrial size is normal. Normal LA size by volume 22+/-6 ml/m2. The right atrial size is normal. There is mild aortic valve sclerosis. There is no evidence of aortic regurgitation. Mild mitral regurgitation is present. Mild tricuspid regurgitation present. Right ventricular systolic pressure is normal at < 35 mmHg. There is no pulmonic regurgitation present. The aortic root size is normal. There is no pericardial effusion. CONCLUSIONS -------- 1. LV size, wall thickness and systolic function are normal, with an EF greater than 55%. 2. The left ventricular size is normal. 3. The diastolic filling pattern is normal for the age of the patient 22.49 4. The right ventricle is normal in size. 5. The left atrial size is normal. 6. Normal LA size by volume 22+/-6 ml/m2. 7. The right atrial size is normal. 8. There is mild aortic valve sclerosis. 9. Mild mitral regurgitation is present. 10. Mild tricuspid regurgitation present. 11. There is no pulmonic regurgitation present. 12. There is no pericardial effusion. OFFICE RECEPTIONIST: Fabienne Peterson RDCS
--- NOTE | 2020-01-07 12:00 | P.PN ---
Subjective Progress Note Date: 01/07/20 Principal diagnosis: Abdominal pain Patient still having right-sided abdominal pain. Says the pain moved sometimes from the upper to lower. Bilirubin remains elevated. GI saw the patient. MRI has been ordered. White blood cell count remains elevated. Objective - Vital Signs Vital signs: Vital Signs Temp 98.2 F 01/07/20 08:31 Pulse 80 01/07/20 08:38 Resp 20 01/07/20 08:31 BP 175/71 01/07/20 08:31 Pulse Ox 95 01/07/20 08:31 Intake & Output 01/06/20 01/07/20 01/07/20 18:59 06:59 18:59 Weight 74.389 kg Other: Voiding Method Toilet Toilet Toilet # Voids 2 # Emeses 2 - Exam Abdomen: Soft, nondistended, mild right-sided tenderness, no rebound or guarding - Labs CBC & Chem 7: 01/07/20 04:09 01/07/20 04:09 Labs: Abnormal Lab Results - Last 24 Hours (Table) 01/07/20 01/07/20 Range/Units 04:09 04:09 WBC 18.6 H (3.8-10.6) k/uL RDW 17.6 H (11.5-15.5) % Plt Count 117 L (150-450) k/uL Neutrophils # 16.1 H (1.3-7.7) k/uL Lymphocytes # 0.7 L (1.0-4.8) k/uL Monocytes # 1.4 H (0-1.0) k/uL Sodium 133 L (137-145) mmol/L Potassium 3.4 L (3.5-5.1) mmol/L BUN 4 L (7-17) mg/dL Creatinine 0.36 L (0.52-1.04) mg/dL Calcium 7.9 L (8.4-10.2) mg/dL Total Bilirubin 4.1 H (0.2-1.3) mg/dL AST 38 H (14-36) U/L ALT 51 H (4-34) U/L Total Protein 5.2 L (6.3-8.2) g/dL Albumin 2.6 L (3.5-5.0) g/dL Microbiology - Last 24 Hours (Table) 01/07/20 00:51 Stool Culture - Preliminary Stool Assessment and Plan (1) Right sided abdominal pain Narrative/Plan: Await GI evaluation and MRCP. Repeat labs tomorrow. Will tentatively schedule for laparoscopic cholecystectomy with diagnostic laparoscopy tomorrow. Await results of above studies. Current Visit: Yes Status: Acute Code(s): R10.9 - UNSPECIFIED ABDOMINAL PAIN SNOMED Code(s): 303454372
[2020-01-07 12:16] LABS: Bilirubin, Conjugated 1.7 mg/dL (0.0-0.3); Bilirubin, Delta 1.3 mg/dL (0.0-0.2); Bilirubin,Unconjugated 0.9 mg/dL (0.0-1.1); Total Bilirubin 3.9 mg/dL (0.2-1.3)
--- NOTE | 2020-01-07 17:10 | P.PN ---
Subjective Progress Note Date: 01/07/20 Ceci Whitten is a 64-year-old female patient of Dr. Love who presented to [facility] emergency room with a chief complaint of right upper quadrant abdominal pain and nausea patient was evaluated in emergency room, her temperature on presentation was 98.4 pulse 114 respiration 18 blood pressure 173/74 pulse ox 97% on room air white blood count was elevated at 16.7 hemoglobin 16.5 platelet count 154 sodium 136 potassium 3.0 kidney function was normal total bilirubin was elevated at 2.8 ALT was elevated at 68 normal alkaline phosphatase, there was minimal elevation in troponin level, lipase was normal. Patient was started on IV antibiotic Zosyn, surgical consultation and infectious disease consultation were requested, also patient was having some tightness in her chest and her troponin was slightly elevated at 0.019, 0.020 cardiology consultation was requested computed tomography scan of the abdomen and pelvis was done and ultrasound of the right upper quadrant was done patient had evidence of diverticulosis but no acute diverticulitis, there was also evidence of cholelithiasis. EKG was done and revealed sinus tachycardia with pulmonary disease pattern and ST and T-wave abnormality in the inferior leads. Patient denies any history of coronary artery disease, angina, or congestive heart failure, she has a history of smoking, 1 pack per day she has been smoking more than 30 years and history of COPD, she has history of diverticulosis. On 01/07/2020 patient was seen and examined on the medical floor she is alert and oriented 3 in no apparent distress she is still complaining of nausea and abdominal discomfort, white blood count is still elevated at 18.6 total bilirubin is more elevated today at 3.9 surgery and gastroenterology are following, consult for cardiology also initiated for chest discomfort otherwise patient denies any other complaints there is no fever or chills no headache or dizziness no chest pain no cough no burning with urination no frequency or urgency and no hematuria no diarrhea no blood in the stools Objective - Vital Signs Vital signs: Vital Signs Temp 98.2 F 01/07/20 08:31 Pulse 80 01/07/20 08:38 Resp 20 01/07/20 08:31 BP 175/71 01/07/20 08:31 Pulse Ox 95 01/07/20 08:31 Intake & Output 01/06/20 01/07/20 01/07/20 18:59 06:59 18:59 Weight 74.389 kg Other: Voiding Method Toilet Toilet Toilet # Voids 2 # Emeses 2 - Exam In general patient is alert and oriented 3 in no apparent distress HEENT head normocephalic and atraumatic Neck is supple no JVD no goiter no lymphadenopathy Chest exam reveals a few scattered rhonchi no wheezing Cardiac exam reveals regular heart sounds no gallops no murmurs Abdomen is soft with tenderness in the epigastric and right upper quadrant area no organomegaly with normal bowel sounds Extremity exam reveals no edema no cyanosis or clubbing Neurological examination reveals no gross focal deficit - Labs CBC & Chem 7: 01/07/20 04:09 01/07/20 04:09 Labs: Abnormal Lab Results - Last 24 Hours (Table) 01/07/20 01/07/20 Range/Units 04:09 04:09 WBC 18.6 H (3.8-10.6) k/uL RDW 17.6 H (11.5-15.5) % Plt Count 117 L (150-450) k/uL Neutrophils # 16.1 H (1.3-7.7) k/uL Lymphocytes # 0.7 L (1.0-4.8) k/uL Monocytes # 1.4 H (0-1.0) k/uL Sodium 133 L (137-145) mmol/L Potassium 3.4 L (3.5-5.1) mmol/L BUN 4 L (7-17) mg/dL Creatinine 0.36 L (0.52-1.04) mg/dL Calcium 7.9 L (8.4-10.2) mg/dL Total Bilirubin 4.1 H (0.2-1.3) mg/dL AST 38 H (14-36) U/L ALT 51 H (4-34) U/L Total Protein 5.2 L (6.3-8.2) g/dL Albumin 2.6 L (3.5-5.0) g/dL Assessment and Plan Plan: 1. Cholelithiasis possible acute cholecystitis 2. Leukocytosis, patient started on IV Zosyn and infectious disease consultation requested 3. Chest tightness with slight elevation in troponin level, awaiting cardiology input 4. Underlying history of COPD 5. Underlying history of depression and anxiety disorder At this time patient is admitted to the observation unit she was started on IV antibiotic Zosyn Surgical consultation infectious disease consultation and cardiology consultation were requested Medications reviewed and reordered Will hold Lexapro at this time due to concomitant use of Zofran
[2020-01-07] MEDS: traZODone HCL 100 MG TAB PO SCH (20:28)
--- NOTE | 2020-01-07 23:19 | PN ---
PROGRESS NOTE DATE OF SERVICE: 01/07/2020 REASON FOR FOLLOWUP: Abdominal pain and leukocytosis. INTERVAL HISTORY: The patient is currently afebrile. The patient is breathing comfortably. Still having the pain to mostly in the right upper as well as lower abdominal area describing it as more of a sharp, improved with pain medication. Nausea, but no vomiting. Did have one loose stool. No chest pain, shortness of breath or cough. PHYSICAL EXAMINATION: Blood pressure 190/83 with a pulse of 103, temperature 98.4. She is 94% on 2 L nasal cannula. General description is a middle-aged female lying in bed in no distress. RESPIRATORY SYSTEM: Unlabored breathing, clear to auscultation anteriorly. HEART: S1, S2. Regular rate and rhythm. ABDOMEN: Soft, mildly tender. No guarding or rigidity. LABS: Hemoglobin is 12.8, white count 18.6. BUN of 4, creatinine 0.36. Blood culture has been negative. Stool culture pending. DIAGNOSTIC IMPRESSION AND PLAN: Patient with abdominal pain with leukocytosis concern for possible gallbladder source and MRCP has been ordered, waiting for it to be finalized. The patient is cleared for possible cholecystectomy versus laparoscopy in the morning. The patient is covered with Zosyn to continue and will monitor clinical course closely. MMODL / IJN: [id number] / MTDMeagan
[2020-01-08] MEDS: SODIUM CHLORIDE 0.9% 1,000 ML IV SCH ×2 (01:10→09:08)
[2020-01-08] MEDS ORDERED: NALOXONE 0.4 MG/ML 1 ML VIAL IV PRN (01:13)
--- NOTE | 2020-01-08 05:04 | CONS ---
CONSULTATION DATE OF DICTATION: 01/07/2020 REASON FOR CONSULTATION: Abdominal pain and elevated liver enzymes. HISTORY OF PRESENT ILLNESS: The patient is a 64-year-old pleasant white female who came to the emergency room yesterday complaining of severe epigastric and right upper quadrant abdominal pain associated with nausea, vomiting for the last one month duration. Symptoms have been progressively getting worse for the last 2 days. She came to the emergency room and was noted to have mild elevation of serum transaminases and bilirubin that was 2.8 g/dL. ALT was 68, AST was 55, alkaline phosphatase was normal. She did have ultrasound of the gallbladder done that showed multiple gallstones but no biliary ductal dilation. She also had a CT of the abdomen and pelvis done that showed the same. This morning, bilirubin went up to 3.1 g/dL and hence we are consulted for possible choledocholithiasis. The patient feels better. She got some pain medication this morning. No further episodes of epigastric pain. She denies any recent weight loss. PAST MEDICAL HISTORY: Significant for COPD, DVT, hypertension, hyperlipidemia, skin rash. PAST SURGICAL HISTORY: Colonoscopy several years ago. MEDICATIONS: Medications at home include Symbicort, Lexapro, Singulair, Pravachol, lisinopril, trazodone, Xanax, folic acid, Combivent, methotrexate, Arava. ALLERGIES: None. FAMILY HISTORY: Mother of old age, Father throat cancer. REVIEW OF SYSTEMS: CARDIOPULMONARY: No chest pain. No shortness of breath. GENITOURINARY: No dysuria or hematuria. MUSCULOSKELETAL: Some arthritis. NEUROLOGY: Unremarkable. PSYCHIATRIC: Unremarkable, other than anxiety, depression. ENT/VISION: Unremarkable. HEMATOLOGY: Unremarkable. ENDOCRINE: Unremarkable. CONSTITUTIONAL: No recent weight loss. No fever, chills, night sweats. PHYSICAL EXAMINATION: She appears comfortable, in no apparent distress. Vital signs are stable. Blood pressure is 133/86, pulse rate 100, temperature 98.1. HEENT EXAMINATION: Unremarkable. Conjunctivae pink. Sclerae anicteric. Oral cavity no lesions. NECK: No JVD or lymph node enlargement. CHEST: Clear to auscultation. HEART: Regular rate and rhythm. ABDOMEN: Soft. Tenderness in the epigastric and right upper quadrant area. Rest of the abdomen was benign. Bowel sounds are positive. No organomegaly. EXTREMITIES: No pedal edema. NEURO: She is alert and oriented x3. No focal deficits. LABS: Labs at the time of admission to the hospital: WBC 16.7, today it is 18.6. Hemoglobin normal. Platelets 117. T bilirubin was 2.8, today it is 3.9, conjugated bilirubin 1.7, AST 38, ALT 51, alkaline phosphatase 101. CT of the abdomen and pelvis done at the time of admission to the hospital did show evidence of multiple gallstones, normal- appearing pancreas, sigmoid diverticulosis. Ultrasound of the gallbladder done yesterday showed no biliary ductal dilation. Large stones in the fundus of the . IMPRESSION: 1. This is a lady who presents with chronic intermittent epigastric right upper quadrant abdominal pain for the last one month duration, but the symptoms got worse for the last 2 days. She is noted to have mild elevation of serum transaminases and bilirubin that is up to 3.1 g/dL. Ultrasound of the gallbladder did show evidence of gallstones but no biliary ductal dilation. Serum transaminases are minimally elevated. With the clinical picture, possibility of choledocholithiasis cannot be excluded though unlikely given minimal elevation of serum transaminases. 2. Leukocytosis, rule out acute cholecystitis. Patient on broad-spectrum antibiotics. 3. Mild thrombocytopenia and hypoalbuminemia. Possibility of underlying chronic liver disease cannot be excluded. RECOMMENDATIONS: 1. Will schedule the patient for MRCP. 2. Clear liquid diet. 3. Based on MRCP, we will decide if she needs any endoscopic intervention. 4. Continue with broad-spectrum antibiotics. 5. We will follow with you closely. Thank you for this consultation. MMODL / IJN: [id number] /
[2020-01-08] MEDS: lisinopriL 20 MG TAB PO SCH (05:09)
[2020-01-08] MEDS: MORPHINE SULFATE 4 MG/ML SYRINGE IV PRN (05:24)
[2020-01-08] MEDS: SYMBICORT 160-4.5 MCG INHALER INHALATION SCH ×2 (07:25→18:42)
[2020-01-08] MEDS: IPRATROPIUM-ALBUTEROL 3 ML NEB INHALATION SCH ×4 (07:33→18:42)
[2020-01-08] MEDS: FOLIC ACID 1 MG TAB PO SCH (09:08)
[2020-01-08] MEDS: LEFLUNOMIDE 20 MG TAB PO SCH (09:08)
[2020-01-08] MEDS: PRAVASTATIN SODIUM 40 MG TAB PO SCH (09:08)
[2020-01-08] MEDS: MONTELUKAST 10 MG TAB PO SCH (09:08)
[2020-01-08] MEDS: PIPERACILLIN-TAZOBACTAM 3.375 GM in SODIUM CHLORIDE 0.9% 100 ML IVPB SCH ×2 (09:33→15:22)
--- NOTE | 2020-01-08 09:37 | MR ---
EXAMINATION TYPE: MR MRCP DATE OF EXAM: 01/08/2020 COMPARISON: CT abdomen and pelvis 3 days ago. Limited abdominal ultrasound [address] January 29, 2016. HISTORY: Abdomen pain, gallstones, r/o cbd stones Standard multiplanar, multisequence MRI departmental protocol Multiplanar, multisequence images of the abdomen were acquired. Thin and thick slice MRCP imaging per formed on MRI scanner. FINDINGS: Exam slightly suboptimal secondary to patient's large body habitus and inability to hold br eath Liver/gallbladder/pancreas/biliary system: Liver is overall normal in size. No concerning solid or cy stic intrahepatic mass. Liver shows overall heterogeneity with diffuse signal dropout consistent with diffuse fatty infiltration. Gallbladder is slightly more central in location than typical. MRI shows no large shadowing gallstone s. There may be small stones and/or sludge versus artifact coronal image 15 and axial image 14. No ojeda spicious gallbladder wall thickening is seen. No surrounding fluid is present. Ultrasound technologis t may have misinterpreted debris and fluid filled adjacent duodenal sweep as contracted gallbladder. Mild to moderate generalized atrophy of the pancreas. No concerning focal masses. MRCP images show no pancreatic ductal dilatation. There is tortuous course to the pancreatic duct. Th ere is no intrahepatic or extra hepatic biliary dilatation. No intraluminal filling defects to sugges t gallstones in the common bile duct. Other: Slightly elevated left hemidiaphragm redemonstrated. Slight asymmetric thickening to left adre nal gland with signal dropout consistent with benign lipid rich hyperplasia. Kidneys show no concerni ng renal mass or hydronephrosis. Proximal to mid transverse colon shows persistent mild/moderate wall thickening corresponding to CT a xial image 50 over short segment, advise colonoscopy follow-up to rule out neoplasm at this level if it has not been performed recently. No suspicious small or large bowel dilatation. More prominent sec ond portion of duodenum with air fluid level incidentally noted. Ectasia and at least moderate atherosclerotic changes of the abdominal aorta are redemonstrated. Mult ilevel spurring in the spine. Mild to moderate height loss superior L3 endplate. IMPRESSION: No large intraluminal gallstones. No MRI evidence for acute cholecystitis. Possible small stones and/or gallbladder sludge versus artifact. Other findings as noted above.
[2020-01-08 11:53] LABS: ALT 46 U/L (4-34); AST 45 U/L (14-36); African American GFR (CKD) >90 (>60 ml/min/1.73 sqM); Albumin 2.3 g/dL (3.5-5.0); Alkaline Phosphatase 100 U/L (38-126); Anion Gap 3 mmol/L; Anisocytosis Slight; Basophils % (A) 0 %; Blood Urea Nitrogen 2 mg/dL (7-17); Calcium 7.7 mg/dL (8.4-10.2); Carbon Dioxide 29 mmol/L (22-30); Chloride 102 mmol/L (98-107); Eosinophils # (A) 0.1 k/uL (0-0.7); Eosinophils % (A) 1 %; Glucose 80 mg/dL (74-99); HCT 36.9 % (34.0-46.0); HGB 11.7 gm/dL (11.4-16.0); Hypochromasia Slight; Lymphocytes % (A) 5 %; MCH 30.3 pg (25.0-35.0); MCHC 31.6 g/dL (31.0-37.0); Macrocytosis Slight; Mean Platelet Volume 9.1; Monocytes # (A) 1.2 k/uL (0-1.0); Monocytes % (A) 7 %; Neutrophils % (A) 86 %; Non-African American GFR(CKD) >90 (>60 ml/min/1.73 sqM); Platelet Count 123 k/uL (150-450); Potassium 3.2 mmol/L (3.5-5.1); RBC 3.85 m/uL (3.80-5.40); RDW 17.8 % (11.5-15.5); Sodium 134 mmol/L (137-145); Total Protein 4.7 g/dL (6.3-8.2); WBC 17.5 k/uL (3.8-10.6)
--- NOTE | 2020-01-08 13:30 | P.PN ---
Subjective Progress Note Date: 01/08/20 CHIEF COMPLAINT: Chest tightness HISTORY OF PRESENT ILLNESS: Patient examined this morning by Dr. Briones. Patient denies chest pain or pressure. Denies shortness of breath. Blood pressure this morning 155/68. Bilirubin 5.0. AST 45. ALT 46. MRCP completed revealing no large intraluminal gallstones. No MRI evidence for acute cholecystitis. Possible small stones in her gallbladder sludge versus artifact. Echocardiogram completed revealed ejection fraction greater than 55%. PHYSICAL EXAM: VITAL SIGNS: Reviewed. GENERAL: Well-developed in no acute distress. NECK: Supple. No JVD or thyromegaly LUNGS: Respirations even and unlabored. Lungs essentially clear to auscultation bilaterally. HEART: Regular rate and rhythm. S1 and S2 heard. EXTREMITIES: Normal range of motion. No clubbing or cyanosis. Peripheral pulses intact. No lower extremity edema ASSESSMENT: Chest pain, atypical. An acute event has been ruled out. Abnormal EKG Possible cholecystitis Hyperbilirubinemia Leukocytosis Hypertension Dyslipidemia COPD Chronic nicotine dependence PLAN: Possible cholecystectomy with Dr. Bloom There are no acute contraindications to undergo surgical intervention. Recommend outpatient stress test once healed from surgery Would also initiate aspirin 81 mg daily post-operatively Further recommendations pending patient course Nurse practitioner note has been reviewed by physician. Signing provider agrees with the documented findings, assessment, and plan of care. Objective - Vital Signs Vital signs: Vital Signs Temp 98.3 F 01/08/20 07:54 Pulse 99 01/08/20 07:54 Resp 17 01/08/20 07:54 BP 155/68 01/08/20 07:54 Pulse Ox 99 01/08/20 07:54 Intake & Output 01/07/20 01/08/20 01/08/20 18:59 06:59 18:59 Other: Voiding Method Toilet Toilet Toilet # Voids 2 # Bowel Movements 2 - Labs CBC & Chem 7: 01/08/20 11:15 01/08/20 11:15 Labs: Abnormal Lab Results - Last 24 Hours (Table) 01/08/20 01/08/20 Range/Units 11:15 11:15 WBC 17.5 H (3.8-10.6) k/uL RDW 17.8 H (11.5-15.5) % Plt Count 123 L (150-450) k/uL Neutrophils # 15.0 H (1.3-7.7) k/uL Monocytes # 1.2 H (0-1.0) k/uL Sodium 134 L (137-145) mmol/L Potassium 3.2 L (3.5-5.1) mmol/L BUN 2 L (7-17) mg/dL Creatinine 0.35 L (0.52-1.04) mg/dL Calcium 7.7 L (8.4-10.2) mg/dL Total Bilirubin 5.0 H (0.2-1.3) mg/dL AST 45 H (14-36) U/L ALT 46 H (4-34) U/L Total Protein 4.7 L (6.3-8.2) g/dL Albumin 2.3 L (3.5-5.0) g/dL Microbiology - Last 24 Hours (Table) 01/06/20 15:37 Blood Culture - Preliminary Blood No Growth after 24 hours 01/07/20 00:51 Stool Culture - Preliminary Stool
--- NOTE | 2020-01-08 13:30 | P.PN ---
Subjective Progress Note Date: 01/08/20 Ceci Whitten is a 64-year-old female patient of Dr. Love who presented to [facility] emergency room with a chief complaint of right upper quadrant abdominal pain and nausea patient was evaluated in emergency room, her temperature on presentation was 98.4 pulse 114 respiration 18 blood pressure 173/74 pulse ox 97% on room air white blood count was elevated at 16.7 hemoglobin 16.5 platelet count 154 sodium 136 potassium 3.0 kidney function was normal total bilirubin was elevated at 2.8 ALT was elevated at 68 normal alkaline phosphatase, there was minimal elevation in troponin level, lipase was normal. Patient was started on IV antibiotic Zosyn, surgical consultation and infectious disease consultation were requested, also patient was having some tightness in her chest and her troponin was slightly elevated at 0.019, 0.020 cardiology consultation was requested computed tomography scan of the abdomen and pelvis was done and ultrasound of the right upper quadrant was done patient had evidence of diverticulosis but no acute diverticulitis, there was also evidence of cholelithiasis. EKG was done and revealed sinus tachycardia with pulmonary disease pattern and ST and T-wave abnormality in the inferior leads. Patient denies any history of coronary artery disease, angina, or congestive heart failure, she has a history of smoking, 1 pack per day she has been smoking more than 30 years and history of COPD, she has history of diverticulosis. On 01/07/2020 patient was seen and examined on the medical floor she is alert and oriented 3 in no apparent distress she is still complaining of nausea and abdominal discomfort, white blood count is still elevated at 18.6 total bilirubin is more elevated today at 3.9 surgery and gastroenterology are following, consult for cardiology also initiated for chest discomfort otherwise patient denies any other complaints there is no fever or chills no headache or dizziness no chest pain no cough no burning with urination no frequency or urgency and no hematuria no diarrhea no blood in the stools On 01/08/2020 patient was seen and examined on the medical floor she is alert and oriented 3 in no apparent distress, she is complaining of abdominal discomfort nausea and diarrhea otherwise she denies any complaints there is no fever or chills no headache or dizziness no chest pain no shortness of breath no cough no burning with urination no frequency or urgency and no hematuria, MRCP done results are noted, white blood count is still elevated at 17.5 potassium low at 3.2 bilirubin more elevated today at 5 Clostridium difficile toxin was negative , at this time general surgery and gastroenterology are following awaiting further input and recommendations. Objective - Vital Signs Vital signs: Vital Signs Temp 98.3 F 01/08/20 07:54 Pulse 99 01/08/20 07:54 Resp 17 01/08/20 07:54 BP 155/68 01/08/20 07:54 Pulse Ox 99 01/08/20 07:54 Intake & Output 01/07/20 01/08/20 01/08/20 18:59 06:59 18:59 Other: Voiding Method Toilet Toilet Toilet # Voids 2 # Bowel Movements 2 - Exam In general patient is alert and oriented 3 in no apparent distress HEENT head normocephalic and atraumatic Neck is supple no JVD no goiter no lymphadenopathy Chest exam reveals a few scattered rhonchi no wheezing Cardiac exam reveals regular heart sounds no gallops no murmurs Abdomen is soft with tenderness in the epigastric and right upper quadrant area no organomegaly with normal bowel sounds Extremity exam reveals no edema no cyanosis or clubbing Neurological examination reveals no gross focal deficit - Labs CBC & Chem 7: 01/08/20 11:15 01/08/20 11:15 Labs: Abnormal Lab Results - Last 24 Hours (Table) 01/08/20 01/08/20 Range/Units 11:15 11:15 WBC 17.5 H (3.8-10.6) k/uL RDW 17.8 H (11.5-15.5) % Plt Count 123 L (150-450) k/uL Neutrophils # 15.0 H (1.3-7.7) k/uL Monocytes # 1.2 H (0-1.0) k/uL Sodium 134 L (137-145) mmol/L Potassium 3.2 L (3.5-5.1) mmol/L BUN 2 L (7-17) mg/dL Creatinine 0.35 L (0.52-1.04) mg/dL Calcium 7.7 L (8.4-10.2) mg/dL Total Bilirubin 5.0 H (0.2-1.3) mg/dL AST 45 H (14-36) U/L ALT 46 H (4-34) U/L Total Protein 4.7 L (6.3-8.2) g/dL Albumin 2.3 L (3.5-5.0) g/dL Microbiology - Last 24 Hours (Table) 01/06/20 15:37 Blood Culture - Preliminary Blood No Growth after 24 hours 01/07/20 00:51 Stool Culture - Preliminary Stool Assessment and Plan Plan: 1. Cholelithiasis possible acute cholecystitis 2. Leukocytosis, patient started on IV Zosyn and infectious disease consultation requested 3. Chest tightness with slight elevation in troponin level, awaiting cardiology input 4. Underlying history of COPD 5. Underlying history of depression and anxiety disorder At this time patient is admitted to the observation unit she was started on IV antibiotic Zosyn Surgical consultation infectious disease consultation and cardiology consultation were requested Medications reviewed and reordered Will hold Lexapro at this time due to concomitant use of Zofran
[2020-01-08] MEDS ORDERED: POTASSIUM CHLORIDE ER 20 MEQ TAB.ER PO SCH ×2 (14:30→15:00)
--- NOTE | 2020-01-08 14:40 | P.PN ---
Progress Note - Text Progress Note Date: 01/08/20 Patient reevaluated today. Her MRCP results were noted. No evidence of biliary obstruction seen. Possible small stones within the gallbladder. I discussed with the patient that the initial ultrasound demonstrating thickened wall and stones may have been related to the adjacent duodenum. She still is having pain in the right side of her abdomen more upper than lower she states. Labs show a persistent leukocytosis. Her bilirubin is increased somewhat further today. Spoke with GI. They believe that the elevated bilirubin is likely related to chronic liver disease. Options once again reviewed with the patient and her family at the bedside. No other etiology for the patient's pain or leukocytosis has been identified. Will proceed with diagnostic laparoscopy with anticipated laparoscopic cholecystectomy. Other findings that would necessitate further intervention were reviewed. Patient remains agreeable. Risks of bleeding, infection, bile leak, bile duct injury, retained common bile duct stone, trocar injury, conversion to an open procedure, hernia, anesthesia related comp lications were reviewed. The patient understands and wishes to proceed.
--- NOTE | 2020-01-08 14:46 | P.PN ---
Subjective Progress Note Date: 01/08/20 Principal diagnosis: abdominal pain and elevated liver enzymes This is a 64-year-old pleasant white female who came to the emergency room yesterday complaining of severe epigastric and right upper quadrant abdominal pain associated with nausea and vomiting for the last month's duration. Symptoms have become progressively worse over the last few days. She is being evaluated surgery. She underwent an ultrasound with plantar that show multiple gallstones but no biliary ductal dilation. She also had a CT of the abdomen and pelvis that showed the same. Today she will underwent an MRCP MRI of the liver. The MRI shows the liver is overall heterogeneity with diffuse signal dropout consistent with diffuse fatty infiltration. MRI shows no large shadowing gallstones, there may be small stones and or sludge versus artifact MRCP images show no pancreatic ductal dilation. There is torturous course to the pancreatic duct. There is no intrahepatic or extrahepatic biliary dilation. No intraluminal filling defects to suggest gallstones and the common bile duct. The patient was seen and evaluated at the bedside. She is still complaining of abdominal pain in the right upper quadrant that is radiating to the epigastric region. She denies any nausea or vomiting. She denies any fevers or chills through the night. Objective - Vital Signs Vital signs: Vital Signs Temp 98.3 F 01/08/20 07:54 Pulse 99 01/08/20 07:54 Resp 17 01/08/20 07:54 BP 155/68 01/08/20 07:54 Pulse Ox 99 01/08/20 07:54 Intake & Output 01/07/20 01/08/20 01/08/20 18:59 06:59 18:59 Other: Voiding Method Toilet Toilet Toilet # Voids 2 # Bowel Movements 2 - Exam General appearance: The patient is alert, oriented, in no acute distress. HET: Head is normocephalic and atraumatic. Conjunctiva pink Sclera and icteric. Neck: Supple without lymphadenopathy. Trachea midline. Abdomen: Soft, right upper quadrant and epigastric tenderness nondistended with bowel sounds. No guarding or rigidity. Extremities: Normal skin color and turgor. No pedal edema. Neurological: No focal deficits. Alert and oriented 3.. - Labs CBC & Chem 7: 01/08/20 11:15 01/08/20 11:15 Labs: Abnormal Lab Results - Last 24 Hours (Table) 01/08/20 01/08/20 Range/Units 11:15 11:15 WBC 17.5 H (3.8-10.6) k/uL RDW 17.8 H (11.5-15.5) % Plt Count 123 L (150-450) k/uL Neutrophils # 15.0 H (1.3-7.7) k/uL Monocytes # 1.2 H (0-1.0) k/uL Sodium 134 L (137-145) mmol/L Potassium 3.2 L (3.5-5.1) mmol/L BUN 2 L (7-17) mg/dL Creatinine 0.35 L (0.52-1.04) mg/dL Calcium 7.7 L (8.4-10.2) mg/dL Total Bilirubin 5.0 H (0.2-1.3) mg/dL AST 45 H (14-36) U/L ALT 46 H (4-34) U/L Total Protein 4.7 L (6.3-8.2) g/dL Albumin 2.3 L (3.5-5.0) g/dL Microbiology - Last 24 Hours (Table) 01/06/20 15:37 Blood Culture - Preliminary Blood No Growth after 24 hours 01/07/20 00:51 Stool Culture - Preliminary Stool Assessment and Plan Assessment: 1. This lady who presents with chronic intermittent epigastric and right upper quadrant abdominal pain for the last 1 month duration, but the symptoms got worse within the last couple days. She is noted to have a mild elevation of serum transaminases and bilirubin went up to 5.1 today. Ultrasound of the gallbladder did show evidence of gallstones but no biliary ductal dilation. MRCP and MRI of the liver was completed which showed no intrahepatic or extrahepatic biliary dilation. There is no evidence of choledocholithiasis and likely are dealing with underlying liver disease. 2. Leukocytosis rule out acute cholecystitis. Patient remains on broad- spectrum antibiotics. 3. Mild thrombocytopenia and hypoalbuminemia again, ability of underlying chronic liver disease. Plan: 1. MRCP reviewed 2. Advance diet per surgical recommendations 3. No endoscopic intervention is indicated at this time excited 4. Continue with broad-spectrum antibiotics 5. Appreciate surgical recommendations 6. We will follow with you closely [place] thank you for this consultation The impression and plan of care has been dictated as directed. Dr. Christina Briones I performed a history and examination of this patient, discussed the same with the dictator. I agree with the dictator's note ,documented as a scribe. Any additional findings or plans will be noted.
[2020-01-08] MEDS: POTASSIUM CHLORIDE 10 MEQ in WATER FOR INJECTION 1 100ML.BAG IVPB SCH ×2 (15:39→16:42)
[2020-01-08] MEDS ORDERED: SODIUM CHLORIDE 0.9% 500 ML 500 ML IV ONE (17:20)
[2020-01-08] MEDS ORDERED: ONDANSETRON 4 MG/2 ML VIAL IVP ONE (17:46)
[2020-01-08] MEDS ORDERED: DEXAMETHASONE SOD PHOSPHATE 10 MG/ML 1 ML VIAL IV ONE (17:48)
[2020-01-08] MEDS ORDERED: LIDOCAINE 1% INJ 10MG/ML (20 ML MDV) ONE (18:59)
[2020-01-08] MEDS ORDERED: NEOSTIGMINE 1 MG/ML 10 ML VIAL ONE (18:59)
[2020-01-08] MEDS ORDERED: ROCURONIUM 10 MG/ML (5 ML VIAL) IV ONE (18:59)
[2020-01-08] MEDS ORDERED: SUCCINYLCHOLINE CHLORIDE 100 MG/5 ML SYR IV ONE (18:59)
[2020-01-08] MEDS ORDERED: PROPOFOL 10 MG/ML 20 ML VIAL IV ONE (18:59)
[2020-01-08] MEDS ORDERED: KETOROLAC 15 MG/ML 1 ML VIAL ONE (18:59)
[2020-01-08] MEDS ORDERED: fentaNYL (PF) 50 MCG/ML 2 ML AMP ONE (18:59)
[2020-01-08] MEDS ORDERED: MIDAZOLAM 2 MG/2 ML VIAL ONE (18:59)
[2020-01-08] MEDS ORDERED: SODIUM CHLORIDE 0.9% 1,000 ML IV ONE ×2 (19:06)
[2020-01-08] MEDS ORDERED: BUPIVACAINE (PF) 0.25% 30 ML VIAL SQ ONE ×3 (19:20→19:29)
[2020-01-08] MEDS ORDERED: SODIUM CHLORIDE 0.9% 100 ML with ceFAZolin 2,000 MG IV ONE ×2 (19:28)
[2020-01-08] MEDS ORDERED: LACTATED RINGERS 1,000 ML IV ONE (19:28)
[2020-01-08] MEDS ORDERED: HYDROmorphone 0.5 MG/0.5 ML SYRINGE IVP PRN (20:17)
--- NOTE | 2020-01-08 20:21 | P.OP ---
Date of Procedure: 01/08/20 Procedure(s) Performed: PREOPERATIVE DIAGNOSIS: Abdominal pain, suspected acute cholecystitis POSTOPERATIVE DIAGNOSIS: Same PROCEDURE: Laparoscopic cholecystectomy with diagnostic laparoscopy SURGEON: Wolf EBL: Minimal see anesthesia record ANESTHESIA: Gen. COMPLICATIONS: None OPERATIVE PROCEDURE: The patient was brought and placed on the operating room table in the supine position. The patient was placed under general anesthesia at that time. The abdomen was prepped and draped in the usual sterile fashion. A small vertical infraumbilical incision was made. The fascia was grasped with the Jonathan forceps. The fascia was retracted anteriorly. The Veress needle was advanced into the peritoneal cavity. The saline drop test was normal. Insufflation took place up to 15 mmHg. A 5 mm optical trocar was advanced and the peritoneal cavity. 2 additional 5 mm trochars were placed in the right upp er quadrant under direct visualization. A 12 mm trocar was advanced into the epigastric incision site. The abdomen was inspected. There was no free fluid seen. There were no inflammatory changes noted. The patient's stomach duodenal sweep appeared normal. The patient's small bowel and visualized colon appeared normal. I could not visualize the appendix. This may have been retrocecal although I do not get the impression that there was any appendiceal stump heading that direction. There were no inflammatory changes in that area. The ileum was free of abnormalities. The area at the ascending transverse colon that appeared somewhat thickened on recent CAT scan and MRI appeared normal to palpation using our pusher. What I could visualize of the sigmoid colon appeared normal. I could not visualize her uterus well. The gallbladder was mildly inflamed in appearance. The liver was mildly enlarged but without nodularity. The gallbladder was retracted superiorly and laterally. The peritoneum overlying the infundibulum was bluntly dissected. The patient's cystic duct was visualized. The junction between the cystic duct common and hepatic duct was identified. The cystic duct was then divided after placement of 3 12 mm clips on the patient's side and one on the specimen side. The cystic artery was identified and clipped as well. A small vessel was seen along the gallbladder fossa and clipped as well. The gallbladder was then removed from the liver bed using electrocautery. The gallbladder was then removed from the epigastric trocar site with an Endo Catch bag. The gallbladder fossa was irrigated with saline. There was no evidence of any bleeding or biliary drainage seen. The fascia at the 12 millimeter site was closed using a Jayson- Rafa 0 Vicryl stitch. The trochars were then removed. The skin at all 4 sites was closed using a 4-0 Monocryl stitch. Skin glue was utilized on the incision sites. At the end of this procedure the sponge and needle counts were correct. DISPOSITION: Stable to the recovery room
--- NOTE | 2020-01-08 22:50 | PN ---
PROGRESS NOTE DATE OF SERVICE: 01/08/2020. REASON FOR FOLLOW UP: Abdominal pain and leukocytosis. INTERVAL HISTORY: Patient is seen on rounds this morning. The patient overall feeling better. She was waiting for surgery this afternoon. No nausea. No vomiting. Abdominal pain about the same. No chest pain, shortness of breath or cough. PHYSICAL EXAMINATION: Blood pressure 132/75 with a pulse of 74, temperature 98. She is 94% on 3 L nasal cannula. General description is a middle-aged female lying in bed in no distress. Respiratory system: Unlabored breathing, clear to auscultation anteriorly. Heart S1, S2. Regular rate and rhythm. Abdomen soft. Tender on the right side. No guarding. No rigidity. Extremities: No edema of the feet. LABS: Hemoglobin is 11.7, white count 17.5. BUN of 2. Creatinine 0.35. Blood and stool culture so far negative. DIAGNOSTIC IMPRESSION AND PLAN: Patient with abdominal pain and elevated white count with no clear etiology. MRSA negative. The patient is scheduled for the laparotomy this afternoon. Continue with Zosyn and monitor clinical course closely. MMODL / IJN: [id number] /
[2020-01-09] MEDS: DOCUSATE 100 MG CAP PO SCH ×3 (00:01→20:07)
[2020-01-09] MEDS: FAMOTIDINE 20 MG TAB PO SCH ×3 (00:01→20:07)
[2020-01-09] MEDS: traZODone HCL 100 MG TAB PO SCH ×2 (00:01→20:06)
[2020-01-09] MEDS: SODIUM CHLORIDE 0.9% 1,000 ML IV SCH ×2 (00:57→09:42)
[2020-01-09] MEDS: PIPERACILLIN-TAZOBACTAM 3.375 GM in SODIUM CHLORIDE 0.9% 100 ML IVPB SCH ×3 (00:57→15:40)
[2020-01-09] MEDS: POTASSIUM CHLORIDE 10 MEQ in WATER FOR INJECTION 1 100ML.BAG IVPB SCH ×2 (00:58→00:59)
[2020-01-09] MEDS: HEPARIN SODIUM,PORCINE 5,000 UNIT/ML 1 ML VIAL SQ SCH ×3 (01:25→15:19)
[2020-01-09] MEDS: IPRATROPIUM-ALBUTEROL 3 ML NEB INHALATION SCH ×5 (01:26→19:42)
[2020-01-09] MEDS: FOLIC ACID 1 MG TAB PO SCH (08:05)
[2020-01-09] MEDS: MONTELUKAST 10 MG TAB PO SCH (08:05)
[2020-01-09] MEDS: lisinopriL 20 MG TAB PO SCH (08:06)
[2020-01-09] MEDS: LEFLUNOMIDE 20 MG TAB PO SCH (08:06)
[2020-01-09] MEDS: PRAVASTATIN SODIUM 40 MG TAB PO SCH (08:07)
[2020-01-09] MEDS: HYDROcodone/APAP 5-325MG 1 EACH TAB PO PRN ×3 (08:07→20:07)
[2020-01-09] MEDS: SYMBICORT 160-4.5 MCG INHALER INHALATION SCH ×2 (08:16→19:42)
[2020-01-09] MEDS: amLODIPine 10 MG TAB PO SCH (08:33)
--- NOTE | 2020-01-09 10:17 | P.PN ---
Subjective Progress Note Date: 01/09/20 CHIEF COMPLAINT: Chest tightness HISTORY OF PRESENT ILLNESS: Patient is status post laparoscopic cholecystectomy with diagnostic laparoscopy with Dr. Bloom. Postoperative day #1. Patient examined this morning at the bedside. Patient reports pain at surgical sites. She denies chest pain or pressure. Denies shortness of breath. Blood pressure significantly elevated this morning at 218/86. She is currently receiving 40 mg of lisinopril daily. PHYSICAL EXAM: VITAL SIGNS: Reviewed. GENERAL: Well-developed in no acute distress. NECK: Supple. No JVD or thyromegaly LUNGS: Respirations even and unlabored. Lungs essentially clear to auscultation bilaterally. HEART: Regular rate and rhythm. S1 and S2 heard. EXTREMITIES: Normal range of motion. No clubbing or cyanosis. Peripheral pulses intact. No lower extremity edema ASSESSMENT: Chest pain, atypical. An acute event has been ruled out. Abnormal EKG Cholecystitis, status post lap francisco Hyperbilirubinemia Leukocytosis Hypertension, uncontrolled Dyslipidemia COPD Chronic nicotine dependence PLAN: Continue lisinopril 40 mg daily Begin Norvasc 10 mg daily Monitor blood pressure Begin aspirin 81 mg daily. Ok with Dr. Bloom Recommend outpatient stress test once healed from surgery We will sign off. Please reconsult if needed Nurse practitioner note has been reviewed by physician. Signing provider agrees with the documented findings, assessment, and plan of care. Objective - Vital Signs Vital signs: Vital Signs Temp 98.6 F 01/09/20 07:54 Pulse 100 01/09/20 08:27 Resp 18 01/09/20 07:54 BP 218/86 01/09/20 07:54 Pulse Ox 96 01/09/20 08:16 Intake & Output 01/08/20 01/09/20 01/09/20 18:59 06:59 18:59 Intake Total 0 800 1170 Output Total 260 250 Balance 0 540 920 Weight 74.389 kg 74.389 kg Intake: IV 0 800 Intake, IV Titration 550 Amount Lactated Ringers 1,000 ml 450 @ 0 mls/hr IV .[facility] Rx#:[id number] Piperacillin-Tazobactam 3 100 .375 gm In Sodium Chloride 0.9% 100 ml @ 25 mls/hr IVPB Q8HR [facility] Rx# :[id number] Oral 620 Output: Urine 250 250 Estimated Blood Loss 10 Other: Voiding Method Toilet Toilet # Voids 2 2 2 # Bowel Movements 2 - Labs CBC & Chem 7: 01/09/20 11:32 01/09/20 11:32 Labs: Abnormal Lab Results - Last 24 Hours (Table) 01/08/20 01/08/20 Range/Units 11:15 11:15 WBC 17.5 H (3.8-10.6) k/uL RDW 17.8 H (11.5-15.5) % Plt Count 123 L (150-450) k/uL Neutrophils # 15.0 H (1.3-7.7) k/uL Monocytes # 1.2 H (0-1.0) k/uL Sodium 134 L (137-145) mmol/L Potassium 3.2 L (3.5-5.1) mmol/L BUN 2 L (7-17) mg/dL Creatinine 0.35 L (0.52-1.04) mg/dL Calcium 7.7 L (8.4-10.2) mg/dL Total Bilirubin 5.0 H (0.2-1.3) mg/dL AST 45 H (14-36) U/L ALT 46 H (4-34) U/L Total Protein 4.7 L (6.3-8.2) g/dL Albumin 2.3 L (3.5-5.0) g/dL Microbiology - Last 24 Hours (Table) 01/06/20 15:37 Blood Culture - Preliminary Blood No Growth after 48 hours
[2020-01-09] MEDS ORDERED: Potassium Replacement Protocol 1 EACH MISC MISCELLANE PRN (11:42)
[2020-01-09 11:57] LABS: Anisocytosis Slight; Basophils % (A) 0 %; Eosinophils % (A) 0 %; HCT 37.2 % (34.0-46.0); HGB 11.6 gm/dL (11.4-16.0); Hypochromasia Slight; Lymphocytes # (A) 0.4 k/uL (1.0-4.8); Lymphocytes % (A) 3 %; MCH 29.9 pg (25.0-35.0); MCHC 31.3 g/dL (31.0-37.0); MCV 95.5 fL (80.0-100.0); Macrocytosis Slight; Mean Platelet Volume 9.1; Monocytes # (A) 0.7 k/uL (0-1.0); Monocytes % (A) 4 %; Neutrophils # (A) 14.7 k/uL (1.3-7.7); Neutrophils % (A) 92 %; Platelet Count 123 k/uL (150-450); RBC 3.89 m/uL (3.80-5.40); RDW 17.8 % (11.5-15.5); WBC 15.9 k/uL (3.8-10.6)
[2020-01-09 12:12] LABS: ALT 55 U/L (4-34); AST 67 U/L (14-36); African American GFR (CKD) >90 (>60 ml/min/1.73 sqM); Albumin 2.4 g/dL (3.5-5.0); Alkaline Phosphatase 105 U/L (38-126); Anion Gap 7 mmol/L; Blood Urea Nitrogen 5 mg/dL (7-17); Calcium 8.1 mg/dL (8.4-10.2); Carbon Dioxide 24 mmol/L (22-30); Chloride 107 mmol/L (98-107); Glucose 117 mg/dL (74-99); Non-African American GFR(CKD) >90 (>60 ml/min/1.73 sqM); Potassium 3.1 mmol/L (3.5-5.1); Sodium 138 mmol/L (137-145); Total Protein 4.9 g/dL (6.3-8.2)
--- NOTE | 2020-01-09 13:18 | P.PN ---
Subjective Progress Note Date: 01/09/20 Principal diagnosis: abdominal pain and elevated liver enzymes This is a 64-year-old pleasant white female who came to the emergency room yesterday complaining of severe epigastric and right upper quadrant abdominal pain associated with nausea and vomiting for the last month's duration. Symptoms have become progressively worse over the last few days. She is being evaluated surgery. She underwent an ultrasound with plantar that show multiple gallstones but no biliary ductal dilation. She also had a CT of the abdomen and pelvis that showed the same. Today she will underwent an MRCP MRI of the liver. The MRI shows the liver is overall heterogeneity with diffuse signal dropout consistent with diffuse fatty infiltration. MRI shows no large shadowing gallstones, there may be small stones and or sludge versus artifact MRCP images show no pancreatic ductal dilation. There is torturous course to the pancreatic duct. There is no intrahepatic or extrahepatic biliary dilation. No intraluminal filling defects to suggest gallstones and the common bile duct. The patient underwent a laparoscopic cholecystectomy with diagnostic laparoscopically yesterday. The patient was seen and evaluated at the bedside. She denies any nausea or vomiting. She denies any fevers or chills through the night. He states she has had a bowel movement, is tolerating her diet. Pain has improved. Objective - Vital Signs Vital signs: Vital Signs Temp 98.6 F 01/09/20 07:54 Pulse 96 01/09/20 11:48 Resp 18 01/09/20 07:54 BP 218/86 01/09/20 07:54 Pulse Ox 96 01/09/20 08:16 Intake & Output 01/08/20 01/09/20 01/09/20 18:59 06:59 18:59 Intake Total 0 800 1170 Output Total 260 250 Balance 0 540 920 Weight 74.389 kg 74.389 kg Intake: IV 0 800 Intake, IV Titration 550 Amount Lactated Ringers 1,000 ml 450 @ 0 mls/hr IV .[facility] Rx#:[id number] Piperacillin-Tazobactam 3 100 .375 gm In Sodium Chloride 0.9% 100 ml @ 25 mls/hr IVPB Q8HR [facility] Rx# :[id number] Oral 620 Output: Urine 250 250 Estimated Blood Loss 10 Other: Voiding Method Toilet Toilet # Voids 2 2 2 # Bowel Movements 2 - Exam General appearance: The patient is alert, oriented, in no acute distress. HET: Head is normocephalic and atraumatic. Conjunctiva pink Sclera and icteric. Neck: Supple without lymphadenopathy. Trachea midline. Abdomen: Soft, tenderness around surgical incision site, nondistended with bowel sounds. No guarding or rigidity. Extremities: Normal skin color and turgor. No pedal edema. Neurological: No focal deficits. Alert and oriented 3.. - Labs CBC & Chem 7: 01/09/20 11:32 01/09/20 11:32 Labs: Abnormal Lab Results - Last 24 Hours (Table) 01/09/20 01/09/20 Range/Units 11:32 11:32 WBC 15.9 H (3.8-10.6) k/uL RDW 17.8 H (11.5-15.5) % Plt Count 123 L (150-450) k/uL Neutrophils # 14.7 H (1.3-7.7) k/uL Lymphocytes # 0.4 L (1.0-4.8) k/uL Potassium 3.1 L (3.5-5.1) mmol/L BUN 5 L (7-17) mg/dL Creatinine 0.39 L (0.52-1.04) mg/dL Glucose 117 H (74-99) mg/dL Calcium 8.1 L (8.4-10.2) mg/dL Total Bilirubin 4.0 H (0.2-1.3) mg/dL AST 67 H (14-36) U/L ALT 55 H (4-34) U/L Total Protein 4.9 L (6.3-8.2) g/dL Albumin 2.4 L (3.5-5.0) g/dL Microbiology - Last 24 Hours (Table) 01/06/20 15:37 Blood Culture - Preliminary Blood No Growth after 48 hours Assessment and Plan Assessment: 1. This lady who presents with chronic intermittent epigastric and right upper quadrant abdominal pain for the last 1 month duration, but the symptoms got worse within the last couple days. She is noted to have a mild elevation of serum transaminases and bilirubin went up to 5.1 today. Ultrasound of the gallbladder did show evidence of gallstones but no biliary ductal dilation. MRCP and MRI of the liver was completed which showed no intrahepatic or extrahepatic biliary dilation. There is no evidence of choledocholithiasis and likely are dealing with underlying liver disease. 2. Leukocytosis rule out acute cholecystitis. Patient remains on broad- spectrum antibiotics. 3. Mild thrombocytopenia and hypoalbuminemia again, ability of underlying chronic liver disease. 4. Status post laparoscopic cholecystectomy with diagnostic laparoscopy for suspected acute cholecystitis Plan: 1. MRCP reviewed 2. Advance diet per surgical recommendations 3. No endoscopic intervention is indicated at this time. Continue with broad- spectrum antibiotics 4. Repeat labs in the morning 5. We will follow with you closely thank you for this consultation The impression and plan of care has been dictated as directed. Dr. Christina Briones I performed a history and examination of this patient, discussed the same with the dictator. I agree with the dictator's note ,documented as a scribe. Any additional findings or plans will be noted.
[2020-01-09] MEDS ORDERED: CALCIUM CARBONATE 500 MG CHEWABLE PO PRN (13:19)
--- NOTE | 2020-01-09 14:38 | P.PN ---
Subjective Progress Note Date: 01/09/20 Ceci Whitten is a 64-year-old female patient of Dr. Love who presented to [facility] emergency room with a chief complaint of right upper quadrant abdominal pain and nausea patient was evaluated in emergency room, her temperature on presentation was 98.4 pulse 114 respiration 18 blood pressure 173/74 pulse ox 97% on room air white blood count was elevated at 16.7 hemoglobin 16.5 platelet count 154 sodium 136 potassium 3.0 kidney function was normal total bilirubin was elevated at 2.8 ALT was elevated at 68 normal alkaline phosphatase, there was minimal elevation in troponin level, lipase was normal. Patient was started on IV antibiotic Zosyn, surgical consultation and infectious disease consultation were requested, also patient was having some tightness in her chest and her troponin was slightly elevated at 0.019, 0.020 cardiology consultation was requested computed tomography scan of the abdomen and pelvis was done and ultrasound of the right upper quadrant was done patient had evidence of diverticulosis but no acute diverticulitis, there was also evidence of cholelithiasis. EKG was done and revealed sinus tachycardia with pulmonary disease pattern and ST and T-wave abnormality in the inferior leads. Patient denies any history of coronary artery disease, angina, or congestive heart failure, she has a history of smoking, 1 pack per day she has been smoking more than 30 years and history of COPD, she has history of diverticulosis. On 01/07/2020 patient was seen and examined on the medical floor she is alert and oriented 3 in no apparent distress she is still complaining of nausea and abdominal discomfort, white blood count is still elevated at 18.6 total bilirubin is more elevated today at 3.9 surgery and gastroenterology are following, consult for cardiology also initiated for chest discomfort otherwise patient denies any other complaints there is no fever or chills no headache or dizziness no chest pain no cough no burning with urination no frequency or urgency and no hematuria no diarrhea no blood in the stools On 01/08/2020 patient was seen and examined on the medical floor she is alert and oriented 3 in no apparent distress, she is complaining of abdominal discomfort nausea and diarrhea otherwise she denies any complaints there is no fever or chills no headache or dizziness no chest pain no shortness of breath no cough no burning with urination no frequency or urgency and no hematuria, MRCP done results are noted, white blood count is still elevated at 17.5 potassium low at 3.2 bilirubin more elevated today at 5 Clostridium difficile toxin was negative , at this time general surgery and gastroenterology are following awaiting further input and recommendations. On 01/09/2020 patient was seen and examined on the medical floor she is feeling better she is alert and oriented 3 in no apparent distress there is no fever or chills no headache or dizziness no chest pain no shortness of breath no cough no nausea or vomiting no abdominal pain, she has some diarrhea today no blood in the stools, no burning was urination no frequency or urgency and no hematuria Objective - Vital Signs Vital signs: Vital Signs Temp 98.6 F 01/09/20 07:54 Pulse 100 01/09/20 08:27 Resp 18 01/09/20 07:54 BP 218/86 01/09/20 07:54 Pulse Ox 96 01/09/20 08:16 Intake & Output 01/08/20 01/09/20 01/09/20 18:59 06:59 18:59 Intake Total 0 800 1170 Output Total 260 250 Balance 0 540 920 Weight 74.389 kg 74.389 kg Intake: IV 0 800 Intake, IV Titration 550 Amount Lactated Ringers 1,000 ml 450 @ 0 mls/hr IV .[facility] Rx#:[id number] Piperacillin-Tazobactam 3 100 .375 gm In Sodium Chloride 0.9% 100 ml @ 25 mls/hr IVPB Q8HR [facility] Rx# :[id number] Oral 620 Output: Urine 250 250 Estimated Blood Loss 10 Other: Voiding Method Toilet # Voids 2 2 2 # Bowel Movements 2 - Exam In general patient is alert and oriented 3 in no apparent distress HEENT head normocephalic and atraumatic Neck is supple no JVD no goiter no lymphadenopathy Chest exam reveals a few scattered rhonchi no wheezing Cardiac exam reveals regular heart sounds no gallops no murmurs Abdomen is soft with tenderness in the epigastric and right upper quadrant area no organomegaly with normal bowel sounds Extremity exam reveals no edema no cyanosis or clubbing Neurological examination reveals no gross focal deficit - Labs CBC & Chem 7: 01/09/20 11:32 01/09/20 11:32 Labs: Abnormal Lab Results - Last 24 Hours (Table) 01/08/20 01/08/20 Range/Units 11:15 11:15 WBC 17.5 H (3.8-10.6) k/uL RDW 17.8 H (11.5-15.5) % Plt Count 123 L (150-450) k/uL Neutrophils # 15.0 H (1.3-7.7) k/uL Monocytes # 1.2 H (0-1.0) k/uL Sodium 134 L (137-145) mmol/L Potassium 3.2 L (3.5-5.1) mmol/L BUN 2 L (7-17) mg/dL Creatinine 0.35 L (0.52-1.04) mg/dL Calcium 7.7 L (8.4-10.2) mg/dL Total Bilirubin 5.0 H (0.2-1.3) mg/dL AST 45 H (14-36) U/L ALT 46 H (4-34) U/L Total Protein 4.7 L (6.3-8.2) g/dL Albumin 2.3 L (3.5-5.0) g/dL Microbiology - Last 24 Hours (Table) 01/06/20 15:37 Blood Culture - Preliminary Blood No Growth after 48 hours Assessment and Plan Plan: 1. Cholelithiasis possible acute cholecystitis, patient underwent laparoscopic cholecystectomy yesterday by Dr. Bloom 2. Leukocytosis, patient started on IV Zosyn and infectious disease consultation requested 3. Chest tightness with slight elevation in troponin level, awaiting cardiology input 4. Underlying history of COPD 5. Underlying history of depression and anxiety disorder At this time patient is admitted to the observation unit she was started on IV antibiotic Zosyn Surgical consultation infectious disease consultation and cardiology consultation were requested Medications reviewed and reordered Will hold Lexapro at this time due to concomitant use of Zofran
[2020-01-09] MEDS ORDERED: POTASSIUM CHLORIDE ER 20 MEQ TAB.ER PO STA (15:08)
--- NOTE | 2020-01-09 15:38 | P.PN ---
Subjective Progress Note Date: 01/09/20 Principal diagnosis: Abdominal pain Patient says her pain is improved. Tolerating diet. Some diarrhea. Labs noted. White blood cell count improving. Objective - Vital Signs Vital signs: Vital Signs Temp 98.6 F 01/09/20 07:54 Pulse 81 01/09/20 15:00 Resp 18 01/09/20 15:00 BP 159/86 01/09/20 15:00 Pulse Ox 95 01/09/20 15:00 Intake & Output 01/08/20 01/09/20 01/09/20 18:59 06:59 18:59 Intake Total 0 800 2380 Output Total 260 250 Balance 0 540 2130 Weight 74.389 kg 74.389 kg Intake: IV 0 800 Intake, IV Titration 950 Amount Lactated Ringers 1,000 ml 450 @ 0 mls/hr IV .STK-MED ONE Rx#:[id number] Piperacillin-Tazobactam 3 100 .375 gm In Sodium Chloride 0.9% 100 ml @ 25 mls/hr IVPB Q8HR [facility] Rx# :[id number] Sodium Chloride 0.9% 100 400 ml @ 0 mls/hr IV .STK-MED ONE with ceFAZolin 2,000 mg Rx#:[id number] Oral 1430 Output: Urine 250 250 Estimated Blood Loss 10 Other: Voiding Method Toilet Toilet # Voids 2 2 3 # Bowel Movements 2 3 - Exam Abdomen: Soft, nondistended, incisions clean and dry, mild tenderness - Labs CBC & Chem 7: 01/09/20 11:32 01/09/20 11:32 Labs: Abnormal Lab Results - Last 24 Hours (Table) 01/09/20 01/09/20 Range/Units 11:32 11:32 WBC 15.9 H (3.8-10.6) k/uL RDW 17.8 H (11.5-15.5) % Plt Count 123 L (150-450) k/uL Neutrophils # 14.7 H (1.3-7.7) k/uL Lymphocytes # 0.4 L (1.0-4.8) k/uL Potassium 3.1 L (3.5-5.1) mmol/L BUN 5 L (7-17) mg/dL Creatinine 0.39 L (0.52-1.04) mg/dL Glucose 117 H (74-99) mg/dL Calcium 8.1 L (8.4-10.2) mg/dL Total Bilirubin 4.0 H (0.2-1.3) mg/dL AST 67 H (14-36) U/L ALT 55 H (4-34) U/L Total Protein 4.9 L (6.3-8.2) g/dL Albumin 2.4 L (3.5-5.0) g/dL Microbiology - Last 24 Hours (Table) 01/07/20 00:51 Stool Culture - Preliminary Stool 01/06/20 15:37 Blood Culture - Preliminary Blood No Growth after 48 hours Assessment and Plan (1) Right sided abdominal pain Narrative/Plan: Will add Questran for the patient's complaints of diarrhea. Continue advancing diet as tolerated. Anticipate discharge tomorrow. Follow-up one week. Current Visit: Yes Status: Acute Code(s): R10.9 - UNSPECIFIED ABDOMINAL PAIN SNOMED Code(s): 654309663
[2020-01-09] MEDS: CHOLESTYRAMINE (WITH SUGAR) 4 GM PACKET PO SCH (18:10)
--- NOTE | 2020-01-09 18:53 | PN ---
PROGRESS NOTE DATE OF SERVICE: 01/09/2020 REASON FOR FOLLOWUP: Abdominal pain, leukocytosis and acute cholecystitis. INTERVAL HISTORY: The patient is currently afebrile. The patient is status post cholecystectomy yesterday. He tolerated the procedure. Abdominal pain is currently controlled. The patient denies having any chest pain or shortness of breath or cough. No nausea, no vomiting or diarrhea. PHYSICAL EXAMINATION: Blood pressure 157/86, pulse 81, temperature 98. She is 95% on 2 L nasal cannula. General description is a middle-aged female lying in bed in no distress. RESPIRATORY SYSTEM: Unlabored breathing with decreased breath sounds at the base. No wheeze. HEART: S1, S2. Regular rate and rhythm. ABDOMEN: Soft, non-tender. No guarding or rigidity. LABS: Hemoglobin 11.6, white count 15.9, BUN of 5, creatinine 0.39. DIAGNOSTIC IMPRESSION AND PLAN: 1. Patient with abdominal pain and leukocytosis secondary to acute cholecystitis, status post cholecystectomy. The patient is covered with Zosyn. Transition to oral antibiotic on discharge. 2. Diarrhea, possibly antibiotic-associated. Will add Questran for symptomatic relief and monitor her clinical course closely. MMODL / IJN: [id number] /
[2020-01-09] MEDS ORDERED: hydrALAZINE HCL 20 MG/ML 1 ML VIAL IVP PRN (21:14)
[2020-01-09] MEDS ORDERED: FUROSEMIDE 10 MG/ML 2 ML VIAL IV ONE (21:30)
[2020-01-10] MEDS: PIPERACILLIN-TAZOBACTAM 3.375 GM in SODIUM CHLORIDE 0.9% 100 ML IVPB SCH ×2 (00:29→08:05)
[2020-01-10] MEDS: HEPARIN SODIUM,PORCINE 5,000 UNIT/ML 1 ML VIAL SQ SCH ×2 (00:29→08:37)
[2020-01-10] MEDS: HYDROcodone/APAP 5-325MG 1 EACH TAB PO PRN ×2 (00:35→12:33)
[2020-01-10 03:12] VITALS: TEMP 98.1
[2020-01-10 07:35] LABS: ALT 57 U/L (4-34); AST 63 U/L (14-36); African American GFR (CKD) >90 (>60 ml/min/1.73 sqM); Albumin 2.9 g/dL (3.5-5.0); Alkaline Phosphatase 127 U/L (38-126); Anion Gap 6 mmol/L; Blood Urea Nitrogen 2 mg/dL (7-17); Carbon Dioxide 31 mmol/L (22-30); Chloride 99 mmol/L (98-107); Glucose 110 mg/dL (74-99); Non-African American GFR(CKD) >90 (>60 ml/min/1.73 sqM); Potassium 3.1 mmol/L (3.5-5.1); Sodium 136 mmol/L (137-145); Total Bilirubin 3.4 mg/dL (0.2-1.3); Total Protein 5.8 g/dL (6.3-8.2)
[2020-01-10] MEDS: IPRATROPIUM-ALBUTEROL 3 ML NEB INHALATION SCH ×2 (07:53→11:59)
[2020-01-10] MEDS: SYMBICORT 160-4.5 MCG INHALER INHALATION SCH (07:53)
[2020-01-10 08:16] VITALS: BP 143/75; RESP 16
[2020-01-10] MEDS: FAMOTIDINE 20 MG TAB PO SCH (08:37)
[2020-01-10] MEDS: FOLIC ACID 1 MG TAB PO SCH (08:37)
[2020-01-10] MEDS: MONTELUKAST 10 MG TAB PO SCH (08:37)
[2020-01-10] MEDS: DOCUSATE 100 MG CAP PO SCH (08:38)
[2020-01-10] MEDS: amLODIPine 10 MG TAB PO SCH (08:38)
[2020-01-10] MEDS: PRAVASTATIN SODIUM 40 MG TAB PO SCH (08:38)
[2020-01-10] MEDS: LEFLUNOMIDE 20 MG TAB PO SCH (08:38)
[2020-01-10] MEDS: lisinopriL 20 MG TAB PO SCH (08:38)
[2020-01-10 08:47] LABS: Anisocytosis Slight; Basophils % (A) 0 %; Eosinophils # (A) 0.1 k/uL (0-0.7); Eosinophils % (A) 1 %; HGB 13.2 gm/dL (11.4-16.0); Lymphocytes % (A) 8 %; MCH 29.8 pg (25.0-35.0); MCHC 31.4 g/dL (31.0-37.0); Macrocytosis Slight; Mean Platelet Volume 9.4; Monocytes # (A) 0.8 k/uL (0-1.0); Monocytes % (A) 7 %; Neutrophils # (A) 9.9 k/uL (1.3-7.7); Neutrophils % (A) 83 %; Platelet Count 158 k/uL (150-450); RBC 4.42 m/uL (3.80-5.40); RDW 17.8 % (11.5-15.5); WBC 11.8 k/uL (3.8-10.6)
[2020-01-10] MEDS ORDERED: ASPIRIN 81 MG PO SCH (09:00)
--- NOTE | 2020-01-10 09:19 | P.PN ---
Progress Note - Text Progress Note Date: 01/10/20 The patient feels better. She wishes to go home today. On exam vital signs appear stable. Abdomen soft. Incision sites are clean dry intact. Status post laparoscopic cholestatic. Patient will be discharged home and follow-up Dr. Bloom next week.
--- NOTE | 2020-01-10 10:53 | PN ---
PROGRESS NOTE Patient is a 64-year-old pleasant white female admitted to the hospital with severe epigastric and right upper quadrant abdominal pain and was noted to have gallstones. She underwent gallbladder surgery by Dr. Bloom two days ago. She is feeling better. She still has some pain in the right upper quadrant area but overall she is feeling better. She has some nausea today. PHYSICAL EXAMINATION: Appears comfortable. VITAL SIGNS: Stable. Blood pressure 143/75, pulse rate 106, temperature 98.1. HEENT examination unremarkable. Conjunctivae pink. Sclerae anicteric. Oral cavity no lesions. NECK: No JVD or lymph node enlargement. CHEST: Clear to auscultation. HEART: Regular rate and rhythm. ABDOMEN: Soft. Bowel sounds are positive. Mild tenderness in the epigastric and right upper quadrant area. EXTREMITIES: No pedal edema. SKIN: No rashes. NEUROLOGIC: Alert and oriented x3. No focal deficits. LABS: Labs done from this morning, WBC 11.8, hemoglobin 13.2, platelets normal. Basic metabolic panel, BUN and creatinine are normal. T-bilirubin is down to 3.4. AST and ALT are 63 and 57 respectively. Alkaline phosphatase is normal. IMPRESSION: 1. Mild elevation of bilirubin and serum transaminases, probably related to underlying chronic liver disease. Liver biopsy could not be performed at the time of gallbladder surgery because of lack of equipment. 2. Epigastric, right upper quadrant abdominal pain status post gallbladder surgery by Dr. Bloom two days ago patient, doing better. 3. Diarrhea, resolved. RECOMMENDATIONS: 1. Advance diet as tolerated. 2. Continue antibiotics. 3. She can be discharged home today. 4. Follow up in the office in a month for workup of chronic liver disease. Thank you for this consultation. MMODL / IJN: [id number] /
--- NOTE | 2020-01-10 11:18 | P.DS ---
Providers Date of admission: 01/07/20 08:57 Expected date of discharge: 01/10/20 Attending physician: Anjum Prieto Consults: 01/06/20 14:53 Consult Physician Routine Consulting Provider: Larry Bloom Consult Reason/Comments: abdominal pain Do you want consulting provider notified?: Yes Consult Physician Routine Consulting Provider: Deanna Jimenez Consult Reason/Comments: leukocytosis , abdominal pain Do you want consulting provider notified?: Yes 01/07/20 08:41 Consult Physician Routine Consulting Provider: Cindy Briones Consult Reason/Comments: elevated bilirubin Do you want consulting provider notified?: Yes Primary care physician: Krista Love [facility] Course: Diagnosis on discharge: 1. Cholelithiasis possible acute cholecystitis, patient underwent laparoscopic cholecystectomy by Dr. Bloom, during this admission 2. Leukocytosis, patient started on IV Zosyn and infectious disease consultation requested 3. Chest tightness with slight elevation in troponin level, awaiting cardiology input 4. Underlying history of COPD 5. Underlying history of depression and anxiety disorder Hospital course: Ceci Whitten is a 64-year-old female patient of Dr. Love who presented to [facility] emergency room with a chief complaint of right upper quadrant abdominal pain and nausea patient was evaluated in emergency room, her temperature on presentation was 98.4 pulse 114 respiration 18 blood pressure 173/74 pulse ox 97% on room air white blood count was elevated at 16.7 hemoglobin 16.5 platelet count 154 sodium 136 potassium 3.0 kidney function was normal total bilirubin was elevated at 2.8 ALT was elevated at 68 normal alkaline phosphatase, there was minimal elevation in troponin level, lipase was normal. Patient was started on IV antibiotic Zosyn, surgical consultation and infectious disease consultation were requested, also patient was having some tightness in her chest and her troponin was slightly elevated at 0.019, 0.020 cardiology consultation was requested computed tomography scan of the abdomen and pelvis was done and ultrasound of the right upper quadrant was done patient had evidence of diverticulosis but no acute diverticulitis, there was also evidence of cholelithiasis. EKG was done and revealed sinus tachycardia with pulmonary disease pattern and ST and T-wave abnormality in the inferior leads. Patient denies any history of coronary artery disease, angina, or congestive heart failure, she has a history of smoking, 1 pack per day she has been smoking more than 30 years and history of COPD, she has history of diverticulosis. On 01/07/2020 patient was seen and examined on the medical floor she is alert and oriented 3 in no apparent distress she is still complaining of nausea and abdominal discomfort, white blood count is still elevated at 18.6 total bilirubin is more elevated today at 3.9 surgery and gastroenterology are following, consult for cardiology also initiated for chest discomfort otherwise patient denies any other complaints there is no fever or chills no headache or dizziness no chest pain no cough no burning with urination no frequency or urgency and no hematuria no diarrhea no blood in the stools On 01/08/2020 patient was seen and examined on the medical floor she is alert and oriented 3 in no apparent distress, she is complaining of abdominal discomfort nausea and diarrhea otherwise she denies any complaints there is no fever or chills no headache or dizziness no chest pain no shortness of breath no cough no burning with urination no frequency or urgency and no hematuria, MRCP done results are noted, white blood count is still elevated at 17.5 potassium low at 3.2 bilirubin more elevated today at 5 Clostridium difficile toxin was negative , at this time general surgery and gastroenterology are following awaiting further input and recommendations. On 01/09/2020 patient was seen and examined on the medical floor she is feeling better she is alert and oriented 3 in no apparent distress there is no fever or chills no headache or dizziness no chest pain no shortness of breath no cough no nausea or vomiting no abdominal pain, she has some diarrhea today no blood in the stools, no burning was urination no frequency or urgency and no hematuria On 01/10/2020 patient was seen and examined on the medical floor she is alert and oriented 3 in no apparent distress there is no fever or chills no headache or dizziness no chest pain no shortness of breath no cough no nausea or vomiting no abdominal pain no blood in the stools no burning with urination no frequency or urgency and no hematuria. Patient is still complaining of loose stools she had 3 loose bowel movements today her potassium is still low at 3.1 however patient is very eager to go home today at this time will replace potassium and discharged patient to home she will follow-up with her primary care physician in 2-3 days Patient Condition at Discharge: Serious Plan - Discharge Summary New Discharge Prescriptions: New amLODIPine [Norvasc] 10 mg PO DAILY #30 tab Hydrocodone/Acetaminophen [Walsh 5-325] 1 tab PO Q6HR PRN 3 Days #6 tab PRN Reason: Pain Aspirin 81 mg PO DAILY chew Levofloxacin [Levaquin] 500 mg PO DAILY 5 Days #5 tab HYDROcodone/APAP 5-325MG [Walsh 5-325] 1 each PO Q4HR PRN tab PRN Reason: Mild Pain amLODIPine [Norvasc] 10 mg PO DAILY tab Cholestyramine (with Sugar) [Questran Packet] 4 gm PO BID@1000,1800 packet Continue metHOTREXate sodium [Methotrexate] 25 mg PO WATKINS Leflunomide [Arava] 20 mg PO DAILY Ipratropium/Albuter 20-100Mcg [Combivent Respimat 20-100Mcg Inhaler] 1 puff INHALATION RT-QID Folic Acid 1 mg PO DAILY ALPRAZolam [Xanax] 0.5 mg PO BID PRN PRN Reason: Anxiety No Action lisinopriL 40 mg PO DAILY Budesonide-Formot 160-4.5 Mcg [Symbicort 160-4.5 Mcg Inhaler] 2 puff INHALATION RT-BID traZODone HCL 200 mg PO HS Pravastatin Sodium [Pravachol] 40 mg PO DAILY Escitalopram [Lexapro] 20 mg PO DAILY Montelukast [Singulair] 10 mg PO DAILY Discharge Medication List Budesonide-Formot 160-4.5 Mcg [Symbicort 160-4.5 Mcg Inhaler] 2 puff INHALATION RT-BID 01/31/18 [History] Escitalopram [Lexapro] 20 mg PO DAILY 01/31/18 [History] Montelukast [Singulair] 10 mg PO DAILY 01/31/18 [History] Pravastatin Sodium [Pravachol] 40 mg PO DAILY 01/31/18 [History] lisinopriL 40 mg PO DAILY 01/31/18 [History] traZODone HCL 200 mg PO HS 01/31/18 [History] ALPRAZolam [Xanax] 0.5 mg PO BID PRN 01/05/20 [History] Folic Acid 1 mg PO DAILY 01/05/20 [History] Ipratropium/Albuter 20-100Mcg [Combivent Respimat 20-100Mcg Inhaler] 1 puff INHALATION RT-QID 01/05/20 [History] Leflunomide [Arava] 20 mg PO DAILY 01/05/20 [History] metHOTREXate sodium [Methotrexate] 25 mg PO WATKINS 01/05/20 [History] Hydrocodone/Acetaminophen [Walsh 5-325] 1 tab PO Q6HR PRN 3 Days #6 tab 01/09/20 [Rx] amLODIPine [Norvasc] 10 mg PO DAILY #30 tab 01/09/20 [Rx] Aspirin 81 mg PO DAILY chew 01/10/20 [Rx] Cholestyramine (with Sugar) [Questran Packet] 4 gm PO BID@1000,1800 packet 01/10/20 [Rx] HYDROcodone/APAP 5-325MG [Walsh 5-325] 1 each PO Q4HR PRN tab 01/10/20 [Rx] Levofloxacin [Levaquin] 500 mg PO DAILY 5 Days #5 tab 01/10/20 [Rx] amLODIPine [Norvasc] 10 mg PO DAILY tab 01/10/20 [Rx] Follow up Appointment(s)/Referral(s): Larry Bloom MD [Medical Doctor] - 1 Week [facility], [NON-STAFF] - 1-2 Days Krista Love MD [Primary Care Provider] - 1-2 days [facility] [NON-STAFF] - 1 Week Cindy Briones MD [STAFF PHYSICIAN] - 4 Weeks Tesfaye Briones MD [STAFF PHYSICIAN] - 1 Week Patient Instructions/Handouts: Laparoscopic Cholecystectomy (DC)
[2020-01-10] MEDS: POTASSIUM CHLORIDE ER 20 MEQ TAB.ER PO SCH ×2 (11:23→12:10)
[2020-01-10 12:17] VITALS: PULSE 90
[2020-01-11] MEDS ORDERED: metHOTREXate sodium 2.5 MG TAB PO SCH (09:00)
--- NOTE | 2020-01-12 22:22 | CDI ---
Documentation Clarification Form Date: 01/13/2020 From: Miles Castrejon Phone: If you have a question about this query, please contact Violeta Sanchez Manager Search Engine at [phone] between 8am and 5pm. Admit Date: 01/07/2020 Discharge Date: 01/10/2020 Patient Name: Ceci Whitten Visit Number: [id number] ATTENTION: The Clinical Documentation Specialists (CDI) and [facility] Coding Staff appreciate your assistance in clarifying documentation. Please respond to the clarification below the line at the bottom and electronically sign. The CDI & [facility] Coding staff will review the response and follow-up if needed. Please note: Queries are made part of the Legal Health Record. If you have any questions, please contact the author of this message via ITS. Dear Anjum Gar MD., The patient presented with the Cholelithiasis possible acute cholecystitis, patient underwent laparoscopic cholecystectomy by Dr. Bloom, during this admission History/Risk Factors: COPD, Depression, HTN Treatment: laparoscopic cholecystectomy 01/[address] Wolf Juarez MD "Complaining some diarrhea, Will add Questran for the patient's complaints of diarrhea" 01/08 Progress note by Deanna Cooper Notes "Diarrhea, possibly antibiotic- associated.Will add Questran for symptomatic relief and monitor her clinical course closely". In your professional opinion, can you please clarify Diarrhea related to antibiotic associated? YES NO Other, please specify As Stated By Dr Jimenez ( POSSIBLY) JAMES
== END 2020-01-10 12:40 | disposition home health service (06) | DRG 418 ==
LOC: EC 17:09 → 1SOBS 23:13 → OBSVTOIN 01-07 08:57
PROVIDERS: ADMIT Internal Medicine; ATTEND Internal Medicine
PROC: 0DJW4ZZ Inspection of Peritoneum, Percutaneous Endoscopic Approach (ICD-10-PCS; principal; 2020-01-08 14:55)
PROC: 0FT44ZZ Resection of Gallbladder, Percutaneous Endoscopic Approach (ICD-10-PCS; principal; 2020-01-08 14:55)
DX: K80.12 Calculus of gallbladder with acute and chronic cholecystitis without obstruction (principal); K52.1 Toxic gastroenteritis and colitis; F41.9 Anxiety disorder, unspecified; I10 Essential (primary) hypertension; F32.9 Major depressive disorder, single episode, unspecified; J44.9 Chronic obstructive pulmonary disease, unspecified; E78.5 Hyperlipidemia, unspecified; D69.6 Thrombocytopenia, unspecified; E86.0 Dehydration; F17.200 Nicotine dependence, unspecified, uncomplicated; T36.95XA Adverse effect of unspecified systemic antibiotic, initial encounter; K76.0 Fatty (change of) liver, not elsewhere classified; R94.31 Abnormal electrocardiogram [ECG] [EKG]; R07.89 Other chest pain; K57.90 Diverticulosis of intestine, part unspecified, without perforation or abscess without bleeding; E87.6 Hypokalemia; Z87.01 Personal history of pneumonia (recurrent); Z79.899 Other long term (current) drug therapy; Z79.51 Long term (current) use of inhaled steroids; Z86.718 Personal history of other venous thrombosis and embolism; Z87.81 Personal history of (healed) traumatic fracture; Z80.8 Family history of malignant neoplasm of other organs or systems; Z87.19 Personal history of other diseases of the digestive system; Z98.890 Other specified postprocedural states
CPT/HCPCS: 36415; 71046; 74177; 74181; 76705; 80053; 81001; 82248; 83690; 84484; 85025; 87040; 87045; 87046; 87324; 88304; 93005; 93306; 94640; 94760; 96361; 96374; 96375; 96376; 99285